=== PATIENT | male | born 1955 | race Caucasian/White ===

== ENCOUNTER → 2018-01-12 | Outpatient (CLI) | payer OTHER ==
[~2018-01-12] MED LIST: ASPI-435 PO; CITA10TA8 PO; CLON-460 PO; IBUP1TAB PO; LSN/2025 PO; MINO0.1C2 PO; NXM/40 PO; TAMS0.4C38 PO; ZOLP10TA PO
--- NOTE | 2018-01-12 15:42 | DIAGNOSTIC IMAGING REPORT ---
MRI OF THE LUMBAR SPINE WITHOUT IV CONTRAST CLINICAL HISTORY: Bilateral lower extremity weakness and leg pain. COMPARISON STUDY: Abdominal CT dated 01/06/2014. MRI of the lumbar spine dated 07/05/2012. TECHNIQUE: MRI of the lumbar spine is performed utilizing various T1 and T2-weighted sequences in the axial and sagittal planes. IV contrast was not administered for this examination. FINDINGS: Lumbar spine: Vertebral body height and alignment are maintained throughout the lumbar spine. Normal marrow signal intensity is preserved throughout the visualized bony structures. The transverse and spinous processes are intact as imaged. A hemangioma is again noted in the body of L1. There is no evidence of spondylolysis. Mild degenerative endplate edema is seen at L2-L3. Intervertebral discs: There is mild degenerative disc desiccation. Minimal loss of height is seen at L1-L2 and L2-L3. Spinal cord: The visualized spinal cord is normal in signal intensity. The conus medullaris terminates at the level of T12. The nerve roots of the cauda equina are normal in morphology. The appearance is unchanged from 2012. L1-L2: Unremarkable. L2-L3: Unremarkable. L3-L4: Unremarkable. L4-L5: Unremarkable. L5-S1: Unremarkable. Sacrum: The visualized sacrum is normal in morphology and signal intensity. Soft tissues: The paraspinous soft tissues are within normal limits. A focus of fatty change within the left psoas muscle is similar to prior studies. Left renal cysts are similar to previous. IMPRESSION: 1. There is no disc herniation, central canal stenosis, or neural foraminal stenosis seen throughout the lumbar spine. 2. No destructive bony process is identified. Dictated: 01/12/2018 3:32 PM Transcribed: 01/12/2018 3:41 PM [email or web address] Electronically signed by: Angel Valladares M.D. 01/12/2018 3:46 PM Dictated Date/Time: 01/12/2018 3:32 PM
== END | disposition home or self-care (01) ==
LOC: C.MRI 14:44
PROVIDERS: ATTEND Family Medicine
DX: R29.898 Other symptoms and signs involving the musculoskeletal system (principal); M79.606 Pain in leg, unspecified

== ENCOUNTER 2019-12-25 11:00 | Inpatient (IN) ==
[2019-12-25] MEDS ORDERED: METOPROLOL TARTRATE 1 MG/ML VIAL IV STA (11:02)
[2019-12-25] MEDS ORDERED: METOPROLOL TARTRATE 1 MG/ML VIAL IV ONE (11:02)
[2019-12-25] MEDS ORDERED: dilTIAZem HCL 125 MG in DEXTROSE 5% 100 ML IV SCH (11:15)
[2019-12-25] MEDS ORDERED: SODIUM CHLORIDE 0.9% 1000ML 1,000 ML IV SCH (11:15)
[2019-12-25 11:18] LABS: Basophils # (auto) 0.02 K/uL (0-0.2); Basophils % (auto) 0.4 %; Eosinophils # (auto) 0.18 K/uL (0-0.5); Eosinophils % (auto) 3.7 %; Hematocrit (blood only) 48.8 % (42-52); Hemoglobin 17.4 g/dL (14.0-18.0); Immature Granulocytes # (auto) 0.02 K/uL (0.00-0.02); Immature Granulocytes % (auto) 0.4 %; Lymphocytes # (auto) 1.62 K/uL (1.2-3.4); Lymphocytes % (auto) 32.9 %; Mean Corpuscular Hemoglobin 30.3 pg (25-34); Mean Corpuscular Hgb Conc 35.7 g/dL (32-36); Mean Platelet Volume 10.2 fL (7.4-10.4); Monocytes # (auto) 0.52 K/uL (0.11-0.59); Monocytes % (auto) 10.6 %; Neutrophils # (auto) 2.56 K/uL (1.4-6.5); Platelet Count 219 K/uL (130-400); RDW Coefficient of Variation 13.5 % (11.5-14.5); RDW Standard Deviation 41.5 fL (36.4-46.3); Red Blood Count 5.74 M/uL (4.7-6.1); White Blood Count 4.92 K/uL (4.8-10.8)
[2019-12-25 11:28] LABS: Partial Thromboplastin Ratio 1.1; Partial Thromboplastin Time 28.5 Seconds (21.0-31.0); Prothrombin Time 10.3 Seconds (9.0-12.0)
--- NOTE | 2019-12-25 11:30 | XRay Report ---
XR chest 1V portable HISTORY: Atypical Chest Pain COMPARISON: Chest 07/04/2014. FINDINGS: No pneumothorax. No pleural effusions. The lungs are clear. The heart remains mildly enlarg ed. Electronic device is overlying the left upper chest. IMPRESSION: Stable mild cardiomegaly. ACT 112: Negative or not required by law. Electronically signed by: Kirill Mcgraw M.D. 12/25/2019 11:28 AM
[2019-12-25 11:35] LABS: BUN Creatinine Ratio 20.1 (10-20); Blood Urea Nitrogen 23 mg/dl (7-18); Calcium 9.9 mg/dl (8.5-10.1); Carbon Dioxide 29 mmol/L (21-32); Chloride 103 mmol/L (98-107); Creatinine Clr Calc Pharmacy 76.1 ml/min; Est GFR (Non-African American) 66.4; Glucose 98 mg/dl (70-99); Lipase 88 U/L (73-393); Potassium 3.4 mmol/L (3.5-5.1); Sodium 139 mmol/L (136-145)
[2019-12-25 11:40] LABS: Troponin I < 0.015 ng/ml (0-0.045)
--- NOTE | 2019-12-25 11:44 | Emergency Department Note ---
ED Visit Note I saw this patient with Dr. Lundy. Please see his note for any medical decision making. . Resident Activity Tracking Resident Involvement: Resident Care Provided Care Provided: Adult ED
[2019-12-25] MEDS ORDERED: OPTIRAY 320 125ml IV PRN (12:17)
[2019-12-25] MEDS ORDERED: ONDANSETRON INJ 2 MG/ML 2 ML VIAL IV STA (12:35)
[2019-12-25] MEDS ORDERED: ONDANSETRON INJ 2 MG/ML 2 ML VIAL ONE (12:36)
--- NOTE | 2019-12-25 12:41 | CT Scan Report ---
CHEST CTA for PULMONARY ARTERIES CT DOSE: HISTORY: Atypical Chest Pain, eval for PE TECHNIQUE: Multiaxial CT images of the chest were performed following the intravenous administration of contrast to evaluate the pulmonary arteries. Maximal intensity projection images were also obtaine d. A dose lowering technique was utilized adhering to the principles of ALARA. COMPARISON STUDY: None. FINDINGS: Hepatic steatosis. The spleen is unremarkable. There is trace fluid posterior to the spleen . There is a partially visualized hypodense lesion within the left upper quadrant measuring 8 cm. Thi s likely represents a renal cyst. The adrenal glands are unremarkable. No pleural or pericardial effu sions. The heart is normal in size. No mediastinal or hilar lymphadenopathy. Normal esophagus. Mild c alcified plaque within the normal caliber thoracic aorta. Inadequate opacification of the aorta to ev aluate for a dissection. No filling defects within the pulmonary arteries to suggest pulmonary embolu s. The central airways are patent. No pneumothorax. Mild emphysema. A 3 mm subpleural nodule along th e left major fissure. This is of doubtful clinical significance. A 1.8 cm cyst/bulla within the right lung base. No focal lung consolidations to suggest pneumonia. Mild dependent changes seen within the lower lobes posteriorly. IMPRESSION: 1. No evidence for pulmonary embolus. 2. Mild emphysema. 3. Hepatic steatosis. 4. Trace fluid posterior to the spleen. However, the spleen appears unremarkable. ACT 112: Negative or not required by law. Electronically signed by: Kirill Mcgraw M.D. 12/25/2019 12:40 PM
--- NOTE | 2019-12-25 12:46 | CT Scan Report ---
HEAD CT NONCONTRAST CT DOSE: 1439.52 mGy.cm HISTORY: syncope hit head TECHNIQUE: Multiaxial CT images of the head were performed without the use of intravenous contrast. A utomated exposure control was utilized for this study. A dose lowering technique was utilized adheri ng to the principles of ALARA. Comparison: Brain MRI 07/05/2012. Findings: The paranasal sinuses and mastoid air cells are clear. The calvarium and skull base are int act. The ventricles and sulci are within normal limits. There is no mass, hematoma, midline shift, or acute infarct. Old left cerebellar infarct and an old lacunar infarct within the left basal ganglia. This remains unchanged. Impression: No significant change compared to the prior study. No acute intracranial abnormality. ACT 112: Negative or not required by law. Electronically signed by: Kirill Mcgraw M.D. 12/25/2019 12:44 PM
[2019-12-25] MEDS ORDERED: Heparin IV Low Dose WITH Bolus STA (13:07)
[2019-12-25] MEDS ORDERED: HEPARIN SOD (PORCINE) 1000 UNIT/ML 10 ML VIAL ONE (13:54)
--- NOTE | 2019-12-25 13:54 | History & Physical Report ---
Date of Service December 25, 2019 Assessment & Plan (1) Atrial fibrillation with RVR: -Admit to telemetry -Continue Cardizem drip -Continue heparin drip -EKG reviewed showing A. fib with RVR, heart rate remains in 150s while at bedside, patient does not feel symptomatic palpitations, reports that he is feeling somewhat better since being in the ER, but not back to baseline -Holter monitor in place, ordered by Dr. Rivera as outpatient, placed 5 days ago for 2-week timeframe -Cardiology consulted, Dr. Burton with [facility] since has already established care -Check TSH -Trend troponins, initial set was negative -Check 2D echo (2) Syncope: -Unwitnessed, CT of the head is negative for any acute intracranial abnormalities/hemorrhage -Check A1c, lipid panel with fasting labs -2D echo ordered -Cardiology consulted as above -Holding aspirin, took dose this morning (3) Hypertension: -Holding lisinopril/HCTZ and amlodipine while on Cardizem drip, continue clonidine -BP stable at 123/67 (4) Hyperlipidemia: -Check lipid panel with a.m. labs, does not appear to be on a statin, initiate if patient is able to tolerate (5) Stroke: History of such 10 years ago (6) Osteoarthritis: -Chronic (7) Fatty liver: -Noted (8) BPH (benign prostatic hyperplasia): -Continue Flomax (9) Hypokalemia: - K+ 3.4, will replace IV (10) DVT prophylaxis: -Heparin gtt, teds CODE: Full code Disposition: Patient from home, lives with , likely to remain in the hospital x1 to 2 days History of Present Illness Primary Care Provider: Mega Tyler, This is a 64 yo M with PMHx of HTN, HLD, stroke 10 years ago, BPH, GERD, insomnia, fatty liver, diverticulitis, who presents with syncopal episode in the setting of A. fib with RVR. The patient is present with his at bedside. He notes that he woke up this morning and felt somewhat nauseous, took 2 Advil along with breakfast because he did not quite feel well. He reports he was supposed to go to a today with his . She went by herself alone and he stayed at home on the couch. He reports getting up to walk down the hallway, felt like he was dreaming and remembers hitting his elbow and his head and woke up on the floor. Patient does not have any abrasions or lesions on either of those locations. He is not sore. He called his and she came home. The patient has actually been wearing a Holter monitor for the past 5 days, prescrib ed by Dr. Rivera with [facility] due to the same sensation of nausea/slight lightheadedness on and off over the past 5 years. He reports that he typically has been able to get over it himself however it has been taking longer for the feeling to resolve. Found to be in AFib with HR 153. Cardizem gtt. Starting on heparin gtt. K+ 3.4, will replace. Allergies Allergy/AdvReac Type Severity Reaction Status Date / Time No Known Allergies Allergy Verified 12/25/19 12:39 Home Medications Home Medications Medication Instructions Recorded Confirmed Type aspirin 325 mg PO QAM 11/26/18 12/25/19 History clonidine HCl 1 tab PO PM 11/26/18 12/25/19 History lisinopril-hydrochlorothiazide 1 tab PO QAM 11/26/18 12/25/19 History tamsulosin 0.4 mg PO QAM 11/26/18 12/25/19 History zolpidem [Ambien] 10 mg PO HS 11/26/18 12/25/19 History cholecalciferol (vitamin D3) 5,000 unit PO QPM 02/09/19 12/25/19 History [Vitamin D3] diphenhydramine-acetaminophen 2 tab PO HS 02/09/19 12/25/19 History [Tylenol PM Extra Strength] esomeprazole magnesium [Nexium] 20 mg PO QAM 02/09/19 12/25/19 History amlodipine 5 mg PO PM 12/25/19 12/25/19 History Past Med/Surg History Medical History BPH (benign prostatic hyperplasia) Diverticulitis Fatty liver GERD (gastroesophageal reflux disease) Hyperlipidemia Hypertension Insomnia Osteoarthritis Stroke 10 YEARS AGO (REASON FOR ASA) Surgical History History of bowel resection WITH COLOSTOMY AND REVERSAL History of cataract surgery 02/16/2019 [facility] [place] History of colonoscopy History of colostomy reversal History of esophagogastroduodenoscopy (EGD) History of herniorrhaphy Hx of LASIK Family History Other No pertinent family history Social History Preferred Language: Albanian Communication Ability: Effective [employer] Required: No Beliefs That Will Affect Care: None Current Living Situation: Spouse Other Information That Helps Us Care for You: No Feels Safe at Home: Yes Safety Concerns: Feels Safe At This Time Smoking Status: Former smoker Cigarettes Per Day: 10 YEARS AGO ; Smoking End Date: 2008 ; Second Hand Exposure: No ; Hx Alcohol Use: Yes Alcohol type: beer and hard liquor Hx Substance Use: No Review of Systems Review of Systems: Constitutional: No fever, sweats or chills Eyes: No diplopia, no worsening or blurred vision ENT: normal hearing, no trouble swallowing Respiratory: No cough, sputum, dyspnea at rest or on exertion Cardiovascular: As per HPI. No chest pain, tightness or palpitations Abdomen: + nausea, No pain, vomiting, diarrhea or constipation Musculoskeletal: No joint pain, calf pain, swelling Neurologic: No weakness, numbness/tingling, or balance problems Psychiatric: No anxiety or depression Skin: No rash or itch Physical Exam Physical Exam: General: awake, alert, no apparent distress, + obese Head: Normocephalic, atraumatic ENT: PERRL, EOMI, no pharyngeal exudate, mucous membranes moist Chest: Clear to auscultation, on room air, no adventitious breath sounds Cardiac: Irregularly irregular, tachy, HR 150s at bedside, no murmur, no JVD, normal peripheral pulses, good capillary refill Abdominal: NABS x 4 quadrants, soft, nondistended, nontender to palpation, no rebound, guarding or tenderness Extremities: Normal inspection, no peripheral edema or erythema, calfs nontender to palpation Psych: Normal mood and affect Neuro: AAO x 3, strength intact bilaterally and related 5/5, no motor deficits, speech is clear, no peripheral sensory deficits Results & Data Vital Signs (Past 12 Hours) Vital Signs Temp Pulse Resp BP Pulse Ox 12/25/19 13:45 153 H 21 123/67 97 12/25/19 13:40 146 H 24 97 12/25/19 13:31 130 H 21 111/35 L 95 12/25/19 13:30 126 H 18 95 12/25/19 13:20 120 H 15 96 12/25/19 13:16 132 H 15 115/75 97 12/25/19 13:10 135 H 21 91 12/25/19 13:06 108 H 22 145/96 H 94 12/25/19 13:01 121 H 19 96 12/25/19 13:00 128 H 20 121/85 95 12/25/19 12:50 128 H 18 98 12/25/19 12:45 132 H 18 112/83 99 12/25/19 12:40 117 H 20 99 12/25/19 12:32 122 H 25 H 135/92 100 12/25/19 12:31 110 H 18 12/25/19 12:04 146 H 22 124/106 H 96 12/25/19 12:01 132 H 23 68/53 L 96 12/25/19 12:00 140 H 19 100 12/25/19 11:50 122 H 17 97 12/25/19 11:45 115 H 16 134/75 97 12/25/19 11:40 125 H 23 72 L 12/25/19 11:32 110 H 15 93 12/25/19 11:31 117 H 19 104/85 95 12/25/19 11:30 93 H 16 89 L 12/25/19 11:25 121 H 21 147/83 H 96 12/25/19 11:20 118 H 22 98 12/25/19 11:11 126 H 25 H 93 12/25/19 11:09 124 H 13 152/128 H 100 12/25/19 11:08 135 H 132/94 12/25/19 11:00 36.8 C 135 H 24 132/64 100 Diagnostic Findings CHEST CTA for PULMONARY ARTERIES CT DOSE: HISTORY: Atypical Chest Pain, eval for PE TECHNIQUE: Multiaxial CT images of the chest were performed following the intravenous administration of contrast to evaluate the pulmonary arteries. Maximal intensity projection images were also obtained. A dose lowering technique was utilized adhering to the principles of ALARA. COMPARISON STUDY: None. FINDINGS: Hepatic steatosis. The spleen is unremarkable. There is trace fluid posterior to the spleen. There is a partially visualized hypodense lesion within the left upper quadrant measuring 8 cm. This likely represents a renal cyst. The adrenal glands are unremarkable. No pleural or pericardial effusions. The heart is normal in size. No mediastinal or hilar lymphadenopathy. Normal esophagus. Mild calcified plaque within the normal caliber thoracic aorta. Inadequate opacification of the aorta to evaluate for a dissection. No filling defects within the pulmonary arteries to suggest pulmonary embolus. The central airways are patent. No pneumothorax. Mild emphysema. A 3 mm subpleural nodule along the left major fissure. This is of doubtful clinical significance. A 1.8 cm cyst/bulla within the right lung base. No focal lung consolidations to suggest pneumonia. Mild dependent changes seen within the lower lobes posteriorly. IMPRESSION: 1. No evidence for pulmonary embolus. 2. Mild emphysema. 3. Hepatic steatosis. 4. Trace fluid posterior to the spleen. However, the spleen appears unremarkable. XR chest 1V portable HISTORY: Atypical Chest Pain COMPARISON: Chest 07/04/2014. FINDINGS: No pneumothorax. No pleural effusions. The lungs are clear. The heart remains mildly enlarged. Electronic device is overlying the left upper chest. IMPRESSION: Stable mild cardiomegaly. ACT 112: Negative or not required by law. Electronically signed by: Kirill Mcgraw M.D. 12/25/2019 11:[address] DOSE: 1439.52 mGy.cm HISTORY: syncope hit head TECHNIQUE: Multiaxial CT images of the head were performed without the use of intravenous contrast. Automated exposure control was utilized for this study. A dose lowering technique was utilized adhering to the principles of ALARA. Comparison: Brain MRI 07/05/2012. Findings: The paranasal sinuses and mastoid air cells are clear. The calvarium and skull base are intact. The ventricles and sulci are within normal limits. There is no mass, hematoma, midline shift, or acute infarct. Old left cerebellar infarct and an old lacunar infarct within the left basal ganglia. This remains unchanged. Impression: No significant change compared to the prior study. No acute intracranial abnormality. ACT 112: Negative or not required by law. Electronically signed by: Kirill Mcgraw M.D. 12/25/2019 12:44 PM Code Status & VTE Plan Code Status Full-discussed with the patient and at bedside Supervising Physician Co-Signing Physician Notes Patient seen and examined, chart reviewed, case discussed with MACY Holley and I agree with her assessment and plan as above. Briefly, patient is a 64yo C male presenting in AF with RVR, syncopal event preceding arrival. Patient has been having intermitted palpitations x 5 years. He has a Zio-patch in place. Presently feels well. Denies CP, SOB, dizziness at present On physical exam he is afebrile, tachycardic, irregularly irregular Skin - no rash HEENT - NC/AT, PERRL, EOMI, MMM Heart - +S1/S2, irregularly irregular, tachycardic, no m/r/g Lungs - CTA Abd - +BS, soft, NT/ND Ext - No edema Labs and images reviewed Assessment/Plan -Observation to telemetry -Cardizem gtt -Heparin gtt -Trend troponins -Check 2D echocardiogram -Appreciate cardiology assistance -Remainder of plan as above PG Care Time/CCT Total # of Minutes Spent Total Time Spent with Patient: Total time spent is greater than 50% in coordination of care (as documented) at patient's floor/unit and/or counseling patient: Coding Level of Care Code 48119 Initial Inpt Care Lvl 3 Diagnoses Atrial fibrillation with RVR I48.91 Syncope R55 Syncope type: unspecified Hypertension I10 Hyperlipidemia E78.5 Stroke I63.9 Osteoarthritis M19.90 Fatty liver K76.0 BPH (benign prostatic hyperplasia) N40.0 Hypokalemia E87.6 DVT prophylaxis Z29.9 (1) Syncope Syncope type: unspecified Qualified Code(s): R55 - Syncope and collapse
--- NOTE | 2019-12-25 14:29 | Emergency Department Note ---
Entered by Coleen Desai acting as a scribe for Jim Lundy History of Present Illness General Chief complaint: Cardiac Assessment Stated complaint: afib Time Seen by Provider: 12/25/19 11:02 Source: patient History of Present Illness Onset (ago): minute(s) (prior to arrival) Location: head (general) Pain Consistency: + other (episode) Quality: + other (syncope) Associated symptoms: + shortness of breath and + other (heart palpitations, fall, head injury) The patient is a 64 year old male who presents to the Emergency Room with complaints a syncopal episode that occurred just prior to arrival. The patient reports heart palpitations and shortness of breath. He states he thinks he hit his head when he passed out and fell. He notes he hit his elbow. The patient reports multiple recent syncopal episode. He reports taking aspirin. The patient denies illicit drug use. Home Medications Home Medications Medication Instructions Recorded Confirmed Type aspirin 325 mg PO QAM 11/26/18 12/25/19 History clonidine HCl 1 tab PO PM 11/26/18 12/25/19 History lisinopril-hydrochlorothiazide 1 tab PO QAM 11/26/18 12/25/19 History tamsulosin 0.4 mg PO QAM 11/26/18 12/25/19 History zolpidem [Ambien] 10 mg PO HS 11/26/18 12/25/19 History cholecalciferol (vitamin D3) 5,000 unit PO QPM 02/09/19 12/25/19 History [Vitamin D3] diphenhydramine-acetaminophen 2 tab PO HS 02/09/19 12/25/19 History [Tylenol PM Extra Strength] esomeprazole magnesium [Nexium] 20 mg PO QAM 02/09/19 12/25/19 History amlodipine 5 mg PO PM 12/25/19 12/25/19 History Allergies Allergy/AdvReac Type Severity Reaction Status Date / Time No Known Allergies Allergy Verified 12/25/19 12:39 Past Med/Surg History Medical History BPH (benign prostatic hyperplasia) Diverticulitis Fatty liver GERD (gastroesophageal reflux disease) Hyperlipidemia Hypertension Insomnia Osteoarthritis Stroke 10 YEARS AGO (REASON FOR ASA) Surgical History History of bowel resection WITH COLOSTOMY AND REVERSAL History of cataract surgery 02/16/2019 [facility] [place] History of colonoscopy History of colostomy reversal History of esophagogastroduodenoscopy (EGD) History of herniorrhaphy Hx of LASIK Family History Other No pertinent family history Social History Preferred Language: [place] Communication Ability: Effective [employer] Required: No Beliefs That Will Affect Care: None Current Living Situation: Spouse Feels Safe at Home: Yes Smoking Status: Never smoker Cigarettes Per Day: 10 YEARS AGO ; Second Hand Exposure: No ; Hx Alcohol Use: Yes Alcohol type: beer and hard liquor Hx Substance Use: No Review of Systems See HPI for pertinent positives & negatives. and A total of 10 systems reviewed and were otherwise negative Physical Exam Vital Signs Vital Signs - 24 hr 12/25/19 11:00 12/25/19 11:08 12/25/19 11:09 Temperature 36.8 C Temperature Source Oral Pulse Rate 135 H 135 H 124 H Pulse Rate from SpO2 Sensor 120 H Pulse Rhythm Irregular Respiratory Rate 24 13 Respiratory Effort / Characteristics Non-Labored Spontaneous Respiratory Depth Normal Blood Pressure 132/64 132/94 152/128 H Blood Pressure Mean 86 129 Blood Pressure Position Lying Pulse Oximetry 100 100 Oxygen Delivery Method Room Air Sepsis Recent Fever Within 48 Hours No Sepsis Action Taken by Nursing No Action Required 12/25/19 11:11 12/25/19 11:20 12/25/19 11:25 Temperature Temperature Source Pulse Rate 126 H 118 H 121 H Pulse Rate from SpO2 Sensor 99 H 89 109 H Pulse Rhythm Respiratory Rate 25 H 22 21 Respiratory Effort / Characteristics Respiratory Depth Blood Pressure 147/83 H Blood Pressure Mean 103 Blood Pressure Position Pulse Oximetry 93 98 96 Oxygen Delivery Method Sepsis Recent Fever Within 48 Hours Sepsis Action Taken by Nursing 12/25/19 11:30 12/25/19 11:31 12/25/19 11:32 Temperature Temperature Source Pulse Rate 93 H 117 H 110 H Pulse Rate from SpO2 Sensor 137 H 134 H 117 H Pulse Rhythm Respiratory Rate 16 19 15 Respiratory Effort / Characteristics Respiratory Depth Blood Pressure 104/85 Blood Pressure Mean 88 Blood Pressure Position Pulse Oximetry 89 L 95 93 Oxygen Delivery Method Sepsis Recent Fever Within 48 Hours Sepsis Action Taken by Nursing 12/25/19 11:40 12/25/19 11:45 12/25/19 11:50 Temperature Temperature Source Pulse Rate 125 H 115 H 122 H Pulse Rate from SpO2 Sensor 108 H 87 81 Pulse Rhythm Respiratory Rate 23 16 17 Respiratory Effort / Characteristics Respiratory Depth Blood Pressure 134/75 Blood Pressure Mean 117 Blood Pressure Position Pulse Oximetry 72 L 97 97 Oxygen Delivery Method Sepsis Recent Fever Within 48 Hours Sepsis Action Taken by Nursing 12/25/19 12:00 12/25/19 12:01 12/25/19 12:04 Temperature Temperature Source Pulse Rate 140 H 132 H 146 H Pulse Rate from SpO2 Sensor 85 84 94 H Pulse Rhythm Respiratory Rate 19 23 22 Respiratory Effort / Characteristics Respiratory Depth Blood Pressure 68/53 L 124/106 H Blood Pressure Mean 57 113 Blood Pressure Position Pulse Oximetry 100 96 96 Oxygen Delivery Method Sepsis Recent Fever Within 48 Hours Sepsis Action Taken by Nursing 12/25/19 12:31 12/25/19 12:32 12/25/19 12:40 Temperature Temperature Source Pulse Rate 110 H 122 H 117 H Pulse Rate from SpO2 Sensor 94 H 97 H Pulse Rhythm Respiratory Rate 18 25 H 20 Respiratory Effort / Characteristics Respiratory Depth Blood Pressure 135/92 Blood Pressure Mean 104 Blood Pressure Position Pulse Oximetry 100 99 Oxygen Delivery Method Sepsis Recent Fever Within 48 Hours Sepsis Action Taken by Nursing 12/25/19 12:45 12/25/19 12:50 12/25/19 13:00 Temperature Temperature Source Pulse Rate 132 H 128 H 128 H Pulse Rate from SpO2 Sensor 114 H 103 H 120 H Pulse Rhythm Respiratory Rate 18 18 20 Respiratory Effort / Characteristics Respiratory Depth Blood Pressure 112/83 121/85 Blood Pressure Mean 105 106 Blood Pressure Position Pulse Oximetry 99 98 95 Oxygen Delivery Method Sepsis Recent Fever Within 48 Hours Sepsis Action Taken by Nursing 12/25/19 13:01 12/25/19 13:06 12/25/19 13:10 Temperature Temperature Source Pulse Rate 121 H 108 H 135 H Pulse Rate from SpO2 Sensor 103 H 91 H 122 H Pulse Rhythm Respiratory Rate 19 22 21 Respiratory Effort / Characteristics Respiratory Depth Blood Pressure 145/96 H Blood Pressure Mean 102 Blood Pressure Position Pulse Oximetry 96 94 91 Oxygen Delivery Method Sepsis Recent Fever Within 48 Hours Sepsis Action Taken by Nursing 12/25/19 13:16 12/25/19 13:20 12/25/19 13:30 Temperature Temperature Source Pulse Rate 132 H 120 H 126 H Pulse Rate from SpO2 Sensor 100 H 75 119 H Pulse Rhythm Respiratory Rate 15 15 18 Respiratory Effort / Characteristics Respiratory Depth Blood Pressure 115/75 Blood Pressure Mean 81 Blood Pressure Position Pulse Oximetry 97 96 95 Oxygen Delivery Method Sepsis Recent Fever Within 48 Hours Sepsis Action Taken by Nursing 12/25/19 13:31 12/25/19 13:40 12/25/19 13:45 Temperature Temperature Source Pulse Rate 130 H 146 H 153 H Pulse Rate from SpO2 Sensor 120 H 100 H 74 Pulse Rhythm Respiratory Rate 21 24 21 Respiratory Effort / Characteristics Respiratory Depth Blood Pressure 111/35 L 123/67 Blood Pressure Mean 41 79 Blood Pressure Position Pulse Oximetry 95 97 97 Oxygen Delivery Method Sepsis Recent Fever Within 48 Hours Sepsis Action Taken by Nursing GENERAL: He is oriented to person, place, and time. He appears well-developed and well-nourished. He does not appear distressed. HENT: Exam performed. - Head: Normocephalic and atraumatic. - Right Ear: External ear normal. No mastoid tenderness. - Left Ear: External ear normal. No mastoid tenderness. - Mouth/Throat: The oropharynx is clear and moist. No trismus in the jaw. No dental abscesses or uvula swelling. No oropharyngeal exudate or tonsillar abscesses. EYES: Conjunctivae and EOM are normal. Pupils are equal, round, and reactive to light. Right eye exhibits no discharge. Left eye exhibits no discharge. No scleral icterus. NECK: Normal range of motion. Neck supple. No JVD present. No spinous process tenderness present. No carotid bruit present. No rigidity. No tracheal deviation and normal range of motion present. No Brudzinski's sign and no Kernig's sign noted. CV: Tachycardic rate, irregular rhythm, normal heart sounds and intact distal pulses. There is no peripheral edema. Palpable radial pulses bue. PULM/CHEST: Effort normal and breath sounds normal. No respiratory distress. No stridor. He has no wheezes. He has no rales. - Chest Wall: He exhibits no tenderness. ABD: The abdomen is soft. Bowel sounds are normal. He has no distension. No mass is present. There is no tenderness. There is no rebound, no guarding, no Anderson's sign and no tenderness at McBurney's point. Rovsig negative. MUSC/SKEL: Normal range of motion. There is no peripheral edema, tenderness or deformity. LYMPH: No cervical adenopathy. NEURO: He is alert and oriented to person, place, and time. He has normal strength. No cranial nerve deficit or sensory deficit. Coordination and gait normal. GCS eye subscore is 4. GCS verbal subscore is 5. GCS motor subscore is 6. Cerebellar tests wnl. SKIN: Skin is warm and dry. He is not diaphoretic. PSYCH: He has a normal mood and affect. Behavior is normal. Judgment and thought content normal. Course Course 1040: I received a call from EMS about the patient who was in a-fib RVR. The patient has a history of multiple syncopal episodes. The patient's EKG showed a- fib, rate of 164. QRS and QTC intervals were within normal limits. There was no ST elevation or ST depression. 1050: I spoke with EMS and told them to give the patient a Cardizem bolus 10mg. The patient's EKG showed a-fib, rate of 177. QRS and QTC intervals were within normal limits. There was no ST elevation or ST depression. 1100: Past medical records reviewed. The patient was evaluated in room C03. A complete history and physical exam was performed. The patient is still in a-fib, RVR. The patient's EKG showed a-fib, rate of 149. QRS and QTC intervals were within normal limits. There was no ST elevation or ST depression. PVCs are present. 1112: There is no Cardizem bolus available in the ER. The patient was given Metoprolol 5mg. He will be started on a Cardizem drip. The patient denies cocaine use. Status post metoprolol, the patient's ventricular rate has improved. The patient's EKG showed a-fib, rate of 115. QRS and QTC intervals were within normal limits. There was no ST elevation or ST depression. PVCs are present. 1200: The patient's heart rate is elevated to 130. His Cardizem drip was increased to 7.5mg. 0100: The patient has remained tachycardic. His Cardizem drip was increased to 10mg. The patient's blood pressure was stable. Labs and imaging were within normal limits. The patient's FRANCESCA score was 3 due to hypertension and a history of stroke. The patient was started on heparin for a-fib and admitted to the [facility] hospitalist service. 0111: I spoke with Dr. Fish - [facility] Hospitalist who agrees to accept the patient for further evaluation. Administered Medications Diltiazem HCl 125 mg/ Dextrose 125 mls @ 10 mls/hr IV .[id number] JEWELL; Protocol Stop: 01/24/20 11:14 Last Titration: 12/25/19 13:05 Dose: 10 mg/hr, 10 mls/hr Documented by: [id number] Cosigned by: [id number] Titration: 12/25/19 12:01 Dose: 7.5 mg/hr, 7.5 mls/hr Documented by: [id number] Cosigned by: [id number] Admin: 12/25/19 11:20 Dose: 5 mg/hr, 5 mls/hr Documented by: [id number] Cosigned by: [id number] Ioversol (Optiray 320 125ml) 118 ml IV ONCE PRN PRN Reason: Interaction Checking Stop: 12/29/19 12:16 Last Admin: 12/25/19 12:17 Dose: 118 ml Documented by: [id number] Discontinued Medications Sodium Chloride (Nss 1000ml) 1,000 mls @ 999 mls/hr IV .[id number] JEWELL Stop: 12/25/19 12:15 Last Infusion: 12/25/19 12:14 Dose: 0 mls/hr Documented by: [id number] Admin: 12/25/19 11:08 Dose: 999 mls/hr Documented by: [id number] Metoprolol Tartrate (Lopressor) Confirm Administered Dose 5 mg IV .STK-MED ONE Stop: 12/25/19 11:03 Last Admin: 12/25/19 11:08 Dose: Not Given Documented by: [id number] Metoprolol Tartrate (Lopressor) 5 mg IV NOW STA Stop: 12/25/19 11:03 Last Admin: 12/25/19 11:08 Dose: 5 mg Documented by: [id number] Ondansetron HCl (Zofran) 4 mg IV NOW STA Stop: 12/25/19 12:36 Last Admin: 12/25/19 12:52 Dose: 4 mg Documented by: [id number] Ondansetron HCl (Zofran) Confirm Administered Dose 4 mg .ROUTE .STK-MED ONE Stop: 12/25/19 12:37 Last Admin: 12/25/19 12:52 Dose: Not Given Documented by: [id number] Critical Care Time Critical Care Time: Yes Total Critical Care Time: 65 I have personally spent 65 minutes of critical care time in the direct management of this patient. This includes bedside care, interpretation of diagnostic studies, and testing, discussion with consultants, patient, and family members, and other required patient management activities. This 65 minutes is in excess of all separately billable procedures. Medical Decision Making Medical Records Attestation: I reviewed the patient's medical records. Home Medications Current Medication List: was personally reviewed by me Laboratory Data Attestation: I reviewed the patient's lab results. Result diagrams: 12/25/19 10:52 12/25/19 10:52 Lab Results 12/25/19 12/25/19 12/25/19 Range/Units 10:52 10:52 10:52 WBC 4.92 (4.8-10.8) K/uL RBC 5.74 (4.7-6.1) M/uL Hgb 17.4 (14.0-18.0) g/dL Hct 48.8 (42-52) % MCV 85.0 (80-100) fL MCH 30.3 (25-34) pg MCHC 35.7 (32-36) g/dL RDW Std Deviation 41.5 (36.4-46.3) fL RDW Coeff of Malissa 13.5 (11.5-14.5) % Plt Count 219 (130-400) K/uL MPV 10.2 (7.4-10.4) fL Immature Gran % (Auto) 0.4 % Neut % (Auto) 52.0 % Lymph % (Auto) 32.9 % Leon % (Auto) 10.6 % Eos % (Auto) 3.7 % Baso % (Auto) 0.4 % Immature Gran # (Auto) 0.02 (0.00-0.02) K/uL Neut # (Auto) 2.56 (1.4-6.5) K/uL Lymph # (Auto) 1.62 (1.2-3.4) K/uL Leon # (Auto) 0.52 (0.11-0.59) K/uL Eos # (Auto) 0.18 (0-0.5) K/uL Baso # (Auto) 0.02 (0-0.2) K/uL PT 10.3 (9.0-12.0) Seconds INR 1.0 (0.9-1.1) APTT 28.5 (21.0-31.0) Seconds PTT Ratio 1.1 Sodium 139 (136-145) mmol/L Potassium 3.4 L (3.5-5.1) mmol/L Chloride 103 (98-107) mmol/L Carbon Dioxide 29 (21-32) mmol/L Anion Gap 7.0 (3-11) BUN 23 H (7-18) mg/dl Creatinine 1.15 (0.6-1.4) mg/dl Est Cr Clr Drug Dosing 76.1 ml/min Est GFR ( Amer) 77.0 Est GFR (Non-Af Amer) 66.4 BUN/Creatinine Ratio 20.1 H (10-20) Glucose 98 (70-99) mg/dl Calcium 9.9 (8.5-10.1) mg/dl Magnesium 2.0 (1.8-2.4) mg/dl Troponin I < 0.015 (0-0.045) ng/ml Lipase 88 (73-393) U/L 12/25/19 Range/Units 10:52 WBC (4.8-10.8) K/uL RBC (4.7-6.1) M/uL Hgb (14.0-18.0) g/dL Hct (42-52) % MCV (80-100) fL MCH (25-34) pg MCHC (32-36) g/dL RDW Std Deviation (36.4-46.3) fL RDW Coeff of Malissa (11.5-14.5) % Plt Count (130-400) K/uL MPV (7.4-10.4) fL Immature Gran % (Auto) % Neut % (Auto) % Lymph % (Auto) % Leon % (Auto) % Eos % (Auto) % Baso % (Auto) % Immature Gran # (Auto) (0.00-0.02) K/uL Neut # (Auto) (1.4-6.5) K/uL Lymph # (Auto) (1.2-3.4) K/uL Leon # (Auto) (0.11-0.59) K/uL Eos # (Auto) (0-0.5) K/uL Baso # (Auto) (0-0.2) K/uL PT (9.0-12.0) Seconds INR (0.9-1.1) APTT (21.0-31.0) Seconds PTT Ratio Sodium (136-145) mmol/L Potassium (3.5-5.1) mmol/L Chloride (98-107) mmol/L Carbon Dioxide (21-32) mmol/L Anion Gap (3-11) BUN (7-18) mg/dl Creatinine (0.6-1.4) mg/dl Est Cr Clr Drug Dosing ml/min Est GFR ( Amer) Est GFR (Non-Af Amer) BUN/Creatinine Ratio (10-20) Glucose (70-99) mg/dl Calcium (8.5-10.1) mg/dl Magnesium Cancelled (1.8-2.4) mg/dl Troponin I (0-0.045) ng/ml Lipase (73-393) U/L Imaging Data Radiologist's Impression: Radiology results as stated below per my review and the radiologist's interpretation: CHEST CTA for PULMONARY ARTERIES CT DOSE: HISTORY: Atypical Chest Pain, eval for PE TECHNIQUE: Multiaxial CT images of the chest were performed following the intravenous administration of contrast to evaluate the pulmonary arteries. Maximal intensity projection images were also obtained. A dose lowering technique was utilized adhering to the principles of ALARA. COMPARISON STUDY: None. FINDINGS: Hepatic steatosis. The spleen is unremarkable. There is trace fluid posterior to the spleen. There is a partially visualized hypodense lesion within the left upper quadrant measuring 8 cm. This likely represents a renal cyst. The adrenal glands are unremarkable. No pleural or pericardial effusions. The heart is normal in size. No mediastinal or hilar lymphadenopathy. Normal esophagus. Mild calcified plaque within the normal caliber thoracic aorta. Inadequate opacification of the aorta to evaluate for a dissection. No filling defects within the pulmonary arteries to suggest pulmonary embolus. The central airways are patent. No pneumothorax. Mild emphysema. A 3 mm subpleural nodule along the left major fissure. This is of doubtful clinical significance. A 1.8 cm cyst/bulla within the right lung base. No focal lung consolidations to suggest pneumonia. Mild dependent changes seen within the lower lobes posteriorly. IMPRESSION: 1. No evidence for pulmonary embolus. 2. Mild emphysema. 3. Hepatic steatosis. 4. Trace fluid posterior to the spleen. However, the spleen appears unremarkable. ACT 112: Negative or not required by law. Electronically signed by: Kirill Mcgraw M.D. 12/25/2019 12:40 PM XR chest 1V portable HISTORY: Atypical Chest Pain COMPARISON: Chest 07/04/2014. FINDINGS: No pneumothorax. No pleural effusions. The lungs are clear. The heart remains mildly enlarged. Electronic device is overlying the left upper chest. IMPRESSION: Stable mild cardiomegaly. ACT 112: Negative or not required by law. Electronically signed by: Kirill Mcgraw M.D. 12/25/2019 11:[address]AST CT DOSE: 1439.52 mGy.cm HISTORY: syncope hit head TECHNIQUE: Multiaxial CT images of the head were performed without the use of intravenous contrast. Automated exposure control was utilized for this study. A dose lowering technique was utilized adhering to the principles of ALARA. Comparison: Brain MRI 07/05/2012. Findings: The paranasal sinuses and mastoid air cells are clear. The calvarium and skull base are intact. The ventricles and sulci are within normal limits. There is no mass, hematoma, midline shift, or acute infarct. Old left cerebellar infarct and an old lacunar infarct within the left basal ganglia. This remains unchanged. Impression: No significant change compared to the prior study. No acute intracranial abnormality. ACT 112: Negative or not required by law. Electronically signed by: Kirill Mcgraw M.D. 12/25/2019 12:44 PM ECG Data Attestation: I personally reviewed and interpreted this ECG as follows: Indication: + syncope Rate (beats per minute): 149 Rhythm: + atrial fibrillation ECG Intervals/blocks: + Normal QRS and + Normal QT-c ECG ST segments: no ST depression and no ST elevation ECG Findings: + PVCs Additional Comments: REPEAT EKG: a-fib, rate of 115, normal QRS and QTC intervals, no ST elevation or ST depression, PVCs present Blood Pressure Blood Pressure Findings: Elevated blood pressure Blood Pressure Disposition: further management by hospitalist ADRIAN Narrative 1040: I received a call from EMS about the patient who was in a-fib RVR. The patient has a history of multiple syncopal episodes. The patient's EKG showed a- fib, rate of 164. QRS and QTC intervals were within normal limits. There was no ST elevation or ST depression. 1050: I spoke with EMS and told them to give the patient a Cardizem bolus 10mg. The patient's EKG showed a-fib, rate of 177. QRS and QTC intervals were within normal limits. There was no ST elevation or ST depression. 1100: Past medical records reviewed. The patient was evaluated in room C03. A complete history and physical exam was performed. The patient is still in a-fib, RVR. The patient's EKG showed a-fib, rate of 149. QRS and QTC intervals were within normal limits. There was no ST elevation or ST depression. PVCs are present. 1112: There is no Cardizem bolus available in the ER. The patient was given Metoprolol 5mg. He will be started on a Cardizem drip. The patient denies cocaine use. Status post metoprolol, the patient's ventricular rate has improved. The patient's EKG showed a-fib, rate of 115. QRS and QTC intervals were within normal limits. There was no ST elevation or ST depression. PVCs are present. 1200: The patient's heart rate is elevated to 130. His Cardizem drip was increased to 7.5mg. 0100: The patient has remained tachycardic. His Cardizem drip was increased to 10mg. The patient's blood pressure was stable. Labs and imaging were within normal limits. The patient's FRANCESCA score was 3 due to hypertension and a history of stroke. The patient was started on heparin for a-fib and admitted to the [facility] hospitalist service. 0111: I spoke with Dr. Fish - [facility] Hospitalist who agrees to accept the patient for further evaluation. Impression & Plan Atrial fibrillation with RVR, Syncope Discharge Plan Visit Data Chief Complaint: Cardiac Assessment Stated Complaint: afib ED Provider: Jim Lundy ED Midlevel Provider: Nimo Johnson Discharge Problem: Atrial fibrillation with RVR, Syncope Patient Disposition: Being Evaluated by Hospitalist Forms Stand Alone Forms: My [facility] Prescriptions Prescriptions: No Action aspirin 325 mg Tablet 325 mg PO QAM RF: 0 clonidine HCl 0.3 mg Tablet 1 tab PO PM RF: 0 tamsulosin 0.4 mg Capsule 0.4 mg PO QAM RF: 0 lisinopril-hydrochlorothiazide 20-25 mg Tablet 1 tab PO QAM RF: 0 zolpidem [Ambien] 10 mg Tablet 10 mg PO HS RF: 0 amlodipine 5 mg tablet 5 mg PO PM RF: 0 diphenhydramine-acetaminophen [Tylenol PM Extra Strength] 25-500 mg Tablet 2 tab PO HS RF: 0 esomeprazole magnesium [Nexium] 20 mg Capsule,Delayed Release(Dr/Ec) 20 mg PO QAM RF: 0 cholecalciferol (vitamin D3) [Vitamin D3] 5,000 unit Tablet 5,000 unit PO QPM RF: 0 Referrals Referrals: Mega Tyler DO [Primary Care Provider] - Discharge Problem: Syncope Qualifiers: Syncope type: unspecified Qualified Code(s): R55 - Syncope and collapse The scribe's documentation has been prepared under my direction and personally reviewed by me in its entirety. I confirm that the note above accurately reflects all work, treatment, procedures, and medical decision making performed by me.
[2019-12-25] MEDS: HEPARIN SODIUM/DEXTROSE 25,000 UNITS/500 ML BAG IV SCH (14:55)
[2019-12-25] MEDS ORDERED: ACETAMINOPHEN 325 MG TAB PO PRN (16:01)
[2019-12-25] MEDS ORDERED: ONDANSETRON INJ 2 MG/ML 2 ML VIAL IV PRN (16:01)
--- NOTE | 2019-12-25 16:20 | Cardiology Consultation ---
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 We can remove his ZIO patch early and have it analyzed especially around the time of his syncope. He could be experiencing vasovagal syncope which was then followed by the atrial fibrillation due to the stress and adrenaline surge from the event. Or he could be having atrial fibrillation resulting in syncope. I will review his echocardiogram when it is complete. He will have cardiac markers drawn. Further evaluation and treatment following the above. History of Present Illness Attending Physician: Maribell Fish, History of Present Illness This is a 64-year-old male patient who was recently evaluated by Dr. Rivera through our clinic. He was referred by the GI service due to symptoms of nausea and abdominal discomfort during exercise. The patient had a ZIO monitor placed and was scheduled for a stress test. He still has the ZIO patch on today. He had a syncopal episode and was admitted to the hospital with atrial fibrillation and RVR which is since spontaneously converted to normal sinus rhythm. He has no prior history of ischemic heart disease. For the past several years he has had nausea with associated dizziness and lightheadedness. It is gotten worse recently and he has been experiencing severe symptoms which led up to his syncope today. Past medical history: 1. Longstanding hypertension 2. 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 Hyperlipidemia with poor tolerance of therapies per patient Allergies Allergy/AdvReac Type Severity Reaction Status Date / Time No Known Allergies Allergy Verified 12/25/19 12:39 Home Medications Home Medications Medication Instructions Recorded Confirmed Type aspirin 325 mg PO QAM 11/26/18 12/25/19 History clonidine HCl 1 tab PO PM 11/26/18 12/25/19 History lisinopril-hydrochlorothiazide 1 tab PO QAM 11/26/18 12/25/19 History tamsulosin 0.4 mg PO QAM 11/26/18 12/25/19 History zolpidem [Ambien] 10 mg PO HS 11/26/18 12/25/19 History cholecalciferol (vitamin D3) 5,000 unit PO QPM 02/09/19 12/25/19 History [Vitamin D3] diphenhydramine-acetaminophen 2 tab PO HS 02/09/19 12/25/19 History [Tylenol PM Extra Strength] esomeprazole magnesium [Nexium] 20 mg PO QAM 02/09/19 12/25/19 History amlodipine 5 mg PO PM 12/25/19 12/25/19 History Patient History Medical History BPH (benign prostatic hyperplasia) Diverticulitis Fatty liver GERD (gastroesophageal reflux disease) Hyperlipidemia Hypertension Insomnia Osteoarthritis Stroke 10 YEARS AGO (REASON FOR ASA) Surgical History History of bowel resection WITH COLOSTOMY AND REVERSAL History of cataract surgery 02/16/2019 [facility] History of colonoscopy History of colostomy reversal History of esophagogastroduodenoscopy (EGD) History of herniorrhaphy Hx of LASIK Family History Other No pertinent family history Social History Preferred Language: Danish Communication Ability: Effective Iso Coordinator Required: No Beliefs That Will Affect Care: None marital status: Current Living Situation: Spouse Other Information That Helps Us Care for You: No Feels Safe at Home: Yes Safety Concerns: Feels Safe At This Time Smoking Status: Former smoker Cigarettes Per Day: 10 YEARS AGO ; Smoking End Date: 2008 ; Second Hand Exposure: No ; Hx Alcohol Use: Yes Alcohol type: beer and hard liquor Hx Substance Use: No Review of Systems Review of Systems: All systems reviewed & are unremarkable except as noted in HPI & below Nothing additional to add Physical Exam Physical Exam: General: no acute distress and stated age Head: normocephalic, no masses, lesions, tenderness or abnormalities Eyes: conjunctiva are pink and non-injected, sclera clear Neck: supple, no adenopathy, no bruits, normal jugular venous pulse, no hepatojugular reflux Chest: normal shape and normal respiratory effort Lungs: clear to auscultation and percussion Cardiac Exam: - regular rate & rhythm, no murmurs gallops or rubs - normal S1, normal S2 Pulses: 2(+) throughout Abdomen: abdomen soft, non-tender, no abnormal masses and no hepatosplenomegaly Musculoskeletal: no gait disturbance, no joint inflammation, no deforming arthritis Extremities: no edema and no cyanosis Neuro: grossly normal exam Results & Data Vital Signs (Past 12 Hours) Vital Signs Temp Pulse Resp BP Pulse Ox Pulse Ox 12/25/19 16:01 80 97 12/25/19 13:45 153 H 21 123/67 97 12/25/19 13:40 146 H 24 97 12/25/19 13:31 130 H 21 111/35 L 95 12/25/19 13:30 126 H 18 95 12/25/19 13:20 120 H 15 96 12/25/19 13:16 132 H 15 115/75 97 12/25/19 13:10 135 H 21 91 12/25/19 13:06 108 H 22 145/96 H 94 12/25/19 13:01 121 H 19 96 12/25/19 13:00 128 H 20 121/85 95 12/25/19 12:50 128 H 18 98 12/25/19 12:45 132 H 18 112/83 99 12/25/19 12:40 117 H 20 99 12/25/19 12:32 122 H 25 H 135/92 100 12/25/19 12:31 110 H 18 12/25/19 12:04 146 H 22 124/106 H 96 12/25/19 12:01 132 H 23 68/53 L 96 12/25/19 12:00 140 H 19 100 12/25/19 11:50 122 H 17 97 12/25/19 11:45 115 H 16 134/75 97 12/25/19 11:40 125 H 23 72 L 12/25/19 11:32 110 H 15 93 12/25/19 11:31 117 H 19 104/85 95 12/25/19 11:30 93 H 16 89 L 12/25/19 11:25 121 H 21 147/83 H 96 12/25/19 11:20 118 H 22 98 12/25/19 11:11 126 H 25 H 93 12/25/19 11:09 124 H 13 152/128 H 100 12/25/19 11:08 135 H 132/94 12/25/19 11:00 36.8 C 135 H 24 132/64 100 Laboratory Results Laboratory Results - last 24 hr 12/25/19 12/25/19 12/25/19 10:52 10:52 10:52 WBC 4.92 RBC 5.74 Hgb 17.4 Hct 48.8 MCV 85.0 MCH 30.3 MCHC 35.7 RDW Std Deviation 41.5 RDW Coeff of Malissa 13.5 Plt Count 219 MPV 10.2 Immature Gran % (Auto) 0.4 Neut % (Auto) 52.0 Lymph % (Auto) 32.9 [place] % (Auto) 10.6 Eos % (Auto) 3.7 Baso % (Auto) 0.4 Immature Gran # (Auto) 0.02 Neut # (Auto) 2.56 Lymph # (Auto) 1.62 [place] # (Auto) 0.52 Eos # (Auto) 0.18 Baso # (Auto) 0.02 PT 10.3 INR 1.0 APTT 28.5 PTT Ratio 1.1 Sodium 139 Potassium 3.4 L Chloride 103 Carbon Dioxide 29 Anion Gap 7.0 BUN 23 H Creatinine 1.15 Est Cr Clr Drug Dosing 76.1 Est GFR ( Amer) 77.0 Est GFR (Non-Af Amer) 66.4 BUN/Creatinine Ratio 20.1 H Glucose 98 Calcium 9.9 Magnesium 2.0 Troponin I < 0.015 Lipase 88 12/25/19 10:52 WBC RBC Hgb Hct MCV MCH MCHC RDW Std Deviation RDW Coeff of Malissa Plt Count MPV Immature Gran % (Auto) Neut % (Auto) Lymph % (Auto) [place] % (Auto) Eos % (Auto) Baso % (Auto) Immature Gran # (Auto) Neut # (Auto) Lymph # (Auto) [place] # (Auto) Eos # (Auto) Baso # (Auto) PT INR APTT PTT Ratio Sodium Potassium Chloride Carbon Dioxide Anion Gap BUN Creatinine Est Cr Clr Drug Dosing Est GFR ( Amer) Est GFR (Non-Af Amer) BUN/Creatinine Ratio Glucose Calcium Magnesium Cancelled Troponin I Lipase Medications Administered Current Inpatient Medications Acetaminophen (Tylenol) 650 mg PO Q4H PRN PRN Reason: Moderate Pain Stop: 01/24/20 16:00 Acetaminophen (Tylenol) 1,000 mg PO HS [facility] Stop: 01/24/20 20:59 Diphenhydramine HCl (Benadryl Capsule) 50 mg PO HS [facility] Stop: 01/24/20 20:59 Diltiazem HCl 125 mg/ Dextrose 125 mls @ 10 mls/hr IV .[id number] [facility]; Protocol Stop: 01/24/20 11:14 Last Titration: 12/25/19 14:57 Dose: 12.5 mg/hr, 12.5 mls/hr Documented by: Heparin Sodium/Dextrose (Heparin Sodium/Dextrose) 25,000 units in 500 mls @ 20 mls/hr IV .Q24H JEWELL; Protocol Stop: 01/24/20 13:14 Last Admin: 12/25/19 14:55 Dose: 1,000 units/hr, 20 mls/hr Documented by: Ioversol (Optiray 320 125ml) 118 ml IV ONCE PRN PRN Reason: Interaction Checking Stop: 12/29/19 12:16 Last Admin: 12/25/19 12:17 Dose: 118 ml Documented by: Metoprolol Succinate (Toprol Xl) 25 mg PO QAM [facility] Stop: 01/24/20 16:24 Ondansetron HCl (Zofran) 4 mg IV Q4H PRN PRN Reason: Nausea And Vomiting Stop: 01/24/20 16:00 Pantoprazole Sodium (Protonix) 40 mg PO QAM [facility] Stop: 01/25/20 08:59 Tamsulosin HCl (Flomax) 0.4 mg PO QAM [facility] Stop: 01/25/20 08:59 Vitamin D (Vitamin D3) 5,000 units PO QPM [facility] Stop: 01/24/20 20:59 Zolpidem Tartrate (Ambien) 10 mg PO HSZ [facility] Stop: 01/24/20 21:59 (1) Syncope Syncope type: unspecified Qualified Code(s): R55 - Syncope and collapse
[2019-12-25] MEDS ORDERED: POTASSIUM CHLORIDE 20 MEQ TABCR PO STA (16:29)
[2019-12-25] MEDS ORDERED: POTASSIUM CHLORIDE / WTR 10 MEQ/100 ML PLCT IV SCH (16:30)
[2019-12-25] MEDS: METOPROLOL SUCC 25MG EXT REL TAB PO SCH (17:19)
[2019-12-25 19:42] LABS: Partial Thromboplastin Ratio 1.3; Partial Thromboplastin Time 34.2 Seconds (21.0-31.0)
[2019-12-25] MEDS ORDERED: HEPARIN IV BOLUS 4,500 UNITS in SYRINGE 0 ML IV ONE (20:15)
[2019-12-25] MEDS: CHOLECALCIFEROL 1,000 UNITS 25 MCG TAB PO SCH (20:30)
[2019-12-25] MEDS: ACETAMINOPHEN 500 MG TAB PO SCH (20:30)
[2019-12-25] MEDS ORDERED: NON-FORMULARY MEDICATION (Diphenhydramine-Acetaminophen [Tylenol Pm Extra Strength] 2 TAB) PO SCH (21:00)
[2019-12-25] MEDS ORDERED: cloNIDine HCL 0.3 MG TAB PO SCH (21:00)
[2019-12-25] MEDS: ZOLPIDEM TARTRATE 10 MG TAB PO SCH (22:26)
[2019-12-26 02:09] LABS: Hematocrit (blood only) 42.9 % (42-52); Hemoglobin 15.4 g/dL (14.0-18.0); Mean Corpuscular Hemoglobin 30.3 pg (25-34); Mean Corpuscular Hgb Conc 35.9 g/dL (32-36); Mean Corpuscular Volume 84.4 fL (80-100); Mean Platelet Volume 9.6 fL (7.4-10.4); Platelet Count 204 K/uL (130-400); RDW Coefficient of Variation 13.5 % (11.5-14.5); RDW Standard Deviation 41.3 fL (36.4-46.3); Red Blood Count 5.08 M/uL (4.7-6.1); White Blood Count 6.49 K/uL (4.8-10.8)
[2019-12-26 02:18] LABS: Partial Thromboplastin Ratio 1.6; Partial Thromboplastin Time 42.7 Seconds (21.0-31.0)
[2019-12-26 02:28] LABS: Albumin Level 3.7 gm/dl (3.4-5.0); BUN Creatinine Ratio 21.3 (10-20); Calcium 8.8 mg/dl (8.5-10.1); Creatinine Clr Calc Pharmacy 85.4 ml/min; Est GFR (Non-African American) 76.8; Potassium 3.4 mmol/L (3.5-5.1)
[2019-12-26 02:38] LABS: Albumin Globulin Ratio 1.1 (0.9-2); Bilirubin,Total 0.4 mg/dl (0.2-1); Globulin 3.4 gm/dl (2.5-4.0); Thyroid Stimulating Hormone 3.45 uIu/ml (0.300-4.500); Total Protein 7.1 gm/dl (6.4-8.2)
[2019-12-26] MEDS ORDERED: HEPARIN IV BOLUS 3,000 UNITS in SYRINGE 0 ML IV ONE (04:00)
[2019-12-26] MEDS ORDERED: HydrALAZINE HCL 20 MG/ML VIAL IV STA (06:32)
[2019-12-26] MEDS: PANTOprazole 40 MG TAB PO SCH (08:38)
[2019-12-26] MEDS: METOPROLOL SUCC 25MG EXT REL TAB PO SCH ×2 (08:38→21:16)
[2019-12-26] MEDS: TAMSULOSIN HCL 0.4 MG CAP PO SCH (08:38)
[2019-12-26] MEDS: HEPARIN SODIUM/DEXTROSE 25,000 UNITS/500 ML BAG IV SCH (09:56)
[2019-12-26 10:52] LABS: Partial Thromboplastin Ratio 1.4
--- NOTE | 2019-12-26 11:43 | Electrocardiogram Report ---
Test Reason : Blood Pressure : / mmHG Vent. Rate : 115 BPM Atrial Rate : 101 BPM P-R Int : 000 ms QRS Dur : 088 ms QT Int : 286 ms P-R-T Axes : 000 -07 020 degrees QTc Int : 395 ms Atrial fibrillation with rapid ventricular response with premature ventricular or aberrantly conducte d complexes Nonspecific T wave abnormality Abnormal ECG When compared with ECG of 07-JUN-2019 10:35, Atrial fibrillation has replaced Sinus rhythm Vent. rate has increased BY 49 BPM Confirmed by Dangelo Lewis ([id number]) on 12/26/2019 11:42:31 AM Referred By: REFERRED SELF Confirmed By:Dangelo Lewis
[2019-12-26] MEDS ORDERED: Nursing to Pharmacy Communication ONE (12:41)
[2019-12-26] MEDS ORDERED: HEPARIN IV BOLUS 4,500 UNITS in SYRINGE 0 ML IV ONE (13:15)
[2019-12-26] MEDS ORDERED: LISINOPRIL/HCTZ 20/12.5MG 1 TAB TAB PO STA (14:16)
--- NOTE | 2019-12-26 14:33 | Cardiology Progress Note ---
Date of Service December 26, 2019 Assessment & Plan (1) Atrial fibrillation with RVR: (2) Syncope: (3) Hyperlipidemia: (4) Hypertension: The patient had 1 of his episodes this morning with flushing and nausea after eating. The patient had a normal sinus rhythm on telemetry without arrhythmias. His vital signs including blood pressure were normal. He was being evaluated by [facility] for these symptoms. I am going to ask the GI service to see him. I am concerned that he may have something unusual like carcinoid syndrome causing his symptoms. He could also be experiencing biliary stasis or something else unusual. He is hypertensive today. I will increase his beta-anderson and add back his lisinopril/hydrochlorothiazide that he was taking at home. I do not believe that there is any indication for clonidine for this patient. The clonidine may be exacerbating his problem as he was being given a once a day dose which can lead to rebound hypertension. The patient is complaining about blood draws for heparin adjustment. I will DC his heparin today and start him on Eliquis. Subjective The patient had an episode of his symptoms this morning. After eating breakfast he became flushed, nauseated and lightheaded. On telemetry he was maintaining sinus rhythm without any evidence of arrhythmias. Nursing took his vital signs and his blood pressure was adequate. After several minutes his symptoms passed. Review of Systems Review of Systems: All systems reviewed & are unremarkable except as noted in HPI & below Nothing additional to add Physical Exam Physical Exam: General: no acute distress and stated age Head: normocephalic, no masses, lesions, tenderness or abnormalities Eyes: conjunctiva are pink and non-injected, sclera clear Neck: supple, no adenopathy, no bruits, normal jugular venous pulse, no hepatoj ugular reflux Chest: normal shape and normal respiratory effort Lungs: clear to auscultation and percussion Cardiac Exam: - regular rate & rhythm, no murmurs gallops or rubs - normal S1, normal S2 Pulses: 2(+) throughout Abdomen: abdomen soft, non-tender, no abnormal masses and no hepatosplenomegaly Musculoskeletal: no gait disturbance, no joint inflammation, no deforming arthritis Extremities: no edema and no cyanosis Neuro: grossly normal exam Results & Data Vital Signs (Past 12 Hours) Vital Signs Temp Pulse Pulse Resp BP BP Pulse Ox 12/26/19 12:00 36.7 C 80 19 174/92 H 96 12/26/19 10:24 36.5 C 82 18 164/94 H 99 12/26/19 08:00 103 H 12/26/19 07:38 168/100 H 12/26/19 06:23 36.6 C 79 19 190/111 H 98 12/26/19 02:52 36.6 C 68 20 175/95 H 99 Laboratory Results Laboratory Results - last 24 hr 12/25/19 12/25/19 12/25/19 16:48 16:48 19:11 WBC RBC Hgb Hct MCV MCH MCHC RDW Std Deviation RDW Coeff of Malissa Plt Count MPV APTT 34.2 H PTT Ratio 1.3 Sodium Potassium Chloride Carbon Dioxide Anion Gap BUN Creatinine Est Cr Clr Drug Dosing Est GFR ( Amer) Est GFR (Non-Af Amer) BUN/Creatinine Ratio Glucose Estimat Average Glucose Hemoglobin A1c Calcium Total Bilirubin AST ALT Alkaline Phosphatase Troponin I < 0.015 Total Protein Albumin Globulin Albumin/Globulin Ratio Triglycerides Cholesterol LDL Cholesterol, Calc VLDL Cholesterol, Calc HDL Cholesterol Cholesterol/HDL Ratio TSH Hepatitis C Ab Screen Neg 12/26/19 12/26/19 12/26/19 01:58 01:58 01:58 WBC 6.49 RBC 5.08 Hgb 15.4 Hct 42.9 MCV 84.4 MCH 30.3 MCHC 35.9 RDW Std Deviation 41.3 RDW Coeff of Malissa 13.5 Plt Count 204 MPV 9.6 APTT 42.7 H PTT Ratio 1.6 Sodium Potassium Chloride Carbon Dioxide Anion Gap BUN Creatinine Est Cr Clr Drug Dosing Est GFR ( Amer) Est GFR (Non-Af Amer) BUN/Creatinine Ratio Glucose Estimat Average Glucose Hemoglobin A1c Calcium Total Bilirubin AST ALT Alkaline Phosphatase Troponin I < 0.015 Total Protein Albumin Globulin Albumin/Globulin Ratio Triglycerides Cholesterol LDL Cholesterol, Calc VLDL Cholesterol, Calc HDL Cholesterol Cholesterol/HDL Ratio TSH Hepatitis C Ab Screen 12/26/19 12/26/19 12/26/19 01:58 01:58 10:31 WBC RBC Hgb Hct MCV MCH MCHC RDW Std Deviation RDW Coeff of Malissa Plt Count MPV APTT 39.0 H PTT Ratio 1.4 Sodium 138 Potassium 3.4 L Chloride 106 Carbon Dioxide 29 Anion Gap 3.0 BUN 22 H Creatinine 1.02 Est Cr Clr Drug Dosing 85.4 Est GFR ( Amer) 89.0 Est GFR (Non-Af Amer) 76.8 BUN/Creatinine Ratio 21.3 H Glucose 94 Estimat Average Glucose Pending Hemoglobin A1c Pending Calcium 8.8 Total Bilirubin 0.4 AST 31 ALT 85 H Alkaline Phosphatase 51 Troponin I Total Protein 7.1 Albumin 3.7 Globulin 3.4 Albumin/Globulin Ratio 1.1 Triglycerides 173 H Cholesterol 152 LDL Cholesterol, Calc 90 VLDL Cholesterol, Calc 35 HDL Cholesterol 27 Cholesterol/HDL Ratio 6 TSH 3.450 Hepatitis C Ab Screen Medications Administered Current Inpatient Medications Acetaminophen (Tylenol) 650 mg PO Q4H PRN PRN Reason: Moderate Pain Stop: 01/24/20 16:00 Acetaminophen (Tylenol) 1,000 mg PO [facility] Stop: 01/24/20 20:59 Last Admin: 12/25/19 20:30 Dose: 1,000 mg Documented by: Diphenhydramine HCl (Benadryl Capsule) 50 mg PO [facility] Stop: 01/24/20 20:59 Last Admin: 12/25/19 20:29 Dose: 50 mg Documented by: Lisinopril/HCTZ (Prinzide 20/12.5mg) 1 tab PO [facility] Stop: 01/26/20 08:59 Ioversol (Optiray 320 125ml) 118 ml IV ONCE PRN PRN Reason: Interaction Checking Stop: 12/29/19 12:16 Last Admin: 12/25/19 12:17 Dose: 118 ml Documented by: Metoprolol Succinate (Toprol Xl) 25 mg PO BID [facility] Stop: 01/25/20 20:59 Ondansetron HCl (Zofran) 4 mg IV Q4H PRN PRN Reason: Nausea And Vomiting Stop: 01/24/20 16:00 Last Admin: 12/26/19 09:58 Dose: 4 mg Documented by: Pantoprazole Sodium (Protonix) 40 mg PO [facility] Stop: 01/25/20 08:59 Last Admin: 12/26/19 08:38 Dose: 40 mg Documented by: Tamsulosin HCl ([facility]omax) [facility] Stop: 01/25/20 08:59 Last Admin: 12/26/19 08:38 Dose: 0.4 mg Documented by: Vitamin D (Vitamin D3) 5,000 units PO QPM [facility] Stop: 01/24/20 20:59 Last Admin: 12/25/19 20:30 Dose: 5,000 units Documented by: Zolpidem Tartrate (Ambien) 10 mg PO HSZ [facility] Stop: 01/24/20 21:59 Last Admin: 12/25/19 22:26 Dose: 10 mg Documented by: (1) Syncope Syncope type: unspecified Qualified Code(s): R55 - Syncope and collapse
[2019-12-26] MEDS: ACETAMINOPHEN 500 MG TAB PO SCH (21:16)
[2019-12-26] MEDS: APIXABAN 5 MG TABLET PO SCH (21:16)
[2019-12-26] MEDS: CHOLECALCIFEROL 1,000 UNITS 25 MCG TAB PO SCH (21:17)
[2019-12-26] MEDS: ZOLPIDEM TARTRATE 10 MG TAB PO SCH (22:47)
--- NOTE | 2019-12-26 22:57 | Hospitalist Progress Note ---
Date of Service December 26, 2019 Assessment & Plan (1) Atrial fibrillation with RVR: -Admit to telemetry -He is back to being sinus. -Stopped heparin and cardizem. -concern over possible carcinoid syndrome, will be on evaluated by GI service -Holter monitor in place, ordered by Dr. Rivera as outpatient, placed 5 days ago for 2-week timeframe -Cardiology consulted, Dr. Burton with [facility] since has already established care -restarted apixaban. (2) Syncope: -Unwitnessed, CT of the head is negative for any acute intracranial abnormalities/hemorrhage -Check A1c, lipid panel with fasting labs -2D echo ordered -Cardiology consulted as above -Holding aspirin, can restart tomorrow. (3) Hypertension: -will reatrt his bp meds. -BP stable at 123/67 (4) Hyperlipidemia: -LDL 90 will hold off statin for now. (5) Stroke: History of such 10 years ago (6) Osteoarthritis: -Chronic (7) Fatty liver: -Noted (8) BPH (benign prostatic hyperplasia): -Continue Flomax (9) Hypokalemia: - replaced (10) DVT prophylaxis: was on heparin drip. now on apixaban. CODE: Full code Disposition: Patient from home, lives with , likely to remain in the hospital x1 to 2 days Subjective Patient reports feeling well. He states he was in bed today in the AM and had another episode of being flushed. He states that cardiology had already seen him after the episode and and had checked the monitor but he had no arrythmias. Patient denies any palpitations today. Review of Systems Review of Systems: Constitutional: No fever, sweats or chills Eyes: No diplopia, no worsening or blurred vision ENT: normal hearing, no trouble swallowing Respiratory: No cough, sputum, dyspnea at rest or on exertion Cardiovascular: As per HPI. No chest pain, tightness or palpitations Abdomen: + nausea, No pain, vomiting, diarrhea or constipation Musculoskeletal: No joint pain, calf pain, swelling Neurologic: No weakness, numbness/tingling, or balance problems Psychiatric: No anxiety or depression Skin: No rash or itch Physical Exam Physical Exam: General: awake, alert, no apparent distress, + obese Head: Normocephalic, atraumatic ENT: PERRL, EOMI, no pharyngeal exudate, mucous membranes moist Chest: Clear to auscultation, on room air, no adventitious breath sounds Cardiac: RRR,, no murmur, no JVD, normal peripheral pulses, good capillary refill Abdominal: NABS x 4 quadrants, soft, nondistended, nontender to palpation, no rebound, guarding or tenderness Extremities: Normal inspection, no peripheral edema or erythema, calfs nontender to palpation Psych: Normal mood and affect Neuro: AAO x 3, strength intact bilaterally and related 5/5, no motor deficits, speech is clear, no peripheral sensory deficits Results & Data [facility]) Vital Signs (Past 12 Hours) Vital Signs Temp Pulse Resp BP BP Pulse Ox 12/26/19 18:48 37.0 C 76 18 168/90 H 95 12/26/19 15:02 36.6 C 81 18 167/91 H 97 12/26/19 12:00 36.7 C 80 19 174/92 H 96 PG Care Time/CCT Total # of Minutes Spent Total Time Spent with Patient: Total time spent is greater than 50% in coordination of care (as documented) at patient's floor/unit and/or counseling patient: Coding Level of Care Code 70482 Subseq Hosp Care Lvl 3 Diagnoses Atrial fibrillation with RVR I48.91 Syncope R55 Syncope type: unspecified Hypertension I10 Hyperlipidemia E78.5 Stroke I63.9 Osteoarthritis M19.90 Fatty liver K76.0 BPH (benign prostatic hyperplasia) N40.0 Hypokalemia E87.6 DVT prophylaxis Z29.9 Time Spent (min) 35 (1) Syncope Syncope type: unspecified Qualified Code(s): R55 - Syncope and collapse
[2019-12-27 06:27] LABS: Hematocrit (blood only) 45.5 % (42-52); Hemoglobin 15.8 g/dL (14.0-18.0); Mean Corpuscular Hemoglobin 29.8 pg (25-34); Mean Corpuscular Hgb Conc 34.7 g/dL (32-36); Mean Corpuscular Volume 85.7 fL (80-100); Platelet Count 187 K/uL (130-400); RDW Coefficient of Variation 13.8 % (11.5-14.5); RDW Standard Deviation 42.8 fL (36.4-46.3); Red Blood Count 5.31 M/uL (4.7-6.1); White Blood Count 5.14 K/uL (4.8-10.8)
[2019-12-27 06:34] LABS: Estimated Average Glucose 105 mg/dl; Hemoglobin A1C 5.3 % (4.5-5.6)
[2019-12-27 06:47] LABS: Albumin Level 3.9 gm/dl (3.4-5.0); BUN Creatinine Ratio 16.8 (10-20); Calcium 9.5 mg/dl (8.5-10.1); Creatinine Clr Calc Pharmacy 77.8 ml/min; Est GFR (African American) 80.3; Est GFR (Non-African American) 69.3; Potassium 3.5 mmol/L (3.5-5.1)
[2019-12-27 06:50] LABS: Albumin Globulin Ratio 1.1 (0.9-2); Bilirubin,Total 0.7 mg/dl (0.2-1); Globulin 3.5 gm/dl (2.5-4.0); Total Protein 7.4 gm/dl (6.4-8.2)
[2019-12-27] MEDS: PANTOprazole 40 MG TAB PO SCH (08:28)
[2019-12-27] MEDS: APIXABAN 5 MG TABLET PO SCH (08:29)
[2019-12-27] MEDS: TAMSULOSIN HCL 0.4 MG CAP PO SCH (08:29)
[2019-12-27] MEDS: METOPROLOL SUCC 25MG EXT REL TAB PO SCH (08:29)
[2019-12-27] MEDS ORDERED: LISINOPRIL/HCTZ 20/12.5MG 1 TAB TAB PO SCH (09:00)
--- NOTE | 2019-12-27 10:56 | XCELERA ---
[id number] [id number]
--- NOTE | 2019-12-27 14:09 | Gastrointestinal Consultation ---
Date of Consultation December 27, 2019 Assessment & Plan (1) Flushing: Mr. Chavez experiences flushing and nausea in the setting of hx of A-fib. It is reasonable to to r/o carcinoid syndrome. Plan: To r/o carcinoid syndrome: Would check 24 hr urine for 5HIAA Would check a serum Chromogranin level Would have pt undergo CT abd/pelvis with IV contrast. Pt wishes for discharge, so it is reasonable to undergo this workup as an OP. I will place these orders in the [facility] OP chart. Pt to get blood/urine tests and CT done as an OP and have an appt in the [facility] Gastro clinic to discuss results. The above plan was discussed with the pt and his who agreed to the work up. This pt was seen with Dr. Diaz who developed and directed the above plan. This pt was discussed with Dr. Jesse Whitaker who plans to discharge the pt today. Present on Admission?: Yes Supervising Physician Co-Signing Physician Notes I have personally seen and examined the patient with Elsa Avendaño. Her note reflects my exam and findings. I agree with her impression and plan. Lab and urine tests as outlined above. Abdominal CT if not already done to look for lesion. Follow up in GI to follow up results. Timmy Diaz M.D. History of Present Illness Reason for Consultation: ? carcinoid syndrome Requesting Physician: Dr. Burton Attending Physician: Jesse Whitaker MD History of Present Illness Mr. Neal Chavez is a 64 yr old male pt of Dr. Luis Armando Tyler, with a hx of A-fib with RVR, Hyperlipidemia, HTN, BPH and osteoarthritis who presented to the ED on 12/25 for a syncopal episodes. On arrival, CT head with old CVA, nothing acute, CT and CTA chest with mild cardiomegaly, no PE. Pt was in A-fib with RVR and was placed on a telemetry fl oor and monitored. Dr. Burton talked with me and explained that the pt has been having episodes of flushing and nausea and that he experienced this here at [facility] w/o worrisome findings on cardiac monitoring. Consult was placed to r/o carcinoid symptoms. The pt and his who is at the bedside tell us that he has had these symptoms for a few years, initially very occasionally but in the past few months, frequently. He describes feeling flushed, nausea and weakness that lingers after the episode. He actually mentioned that he was experiencing this during my interview with him and he was witnessed to have a billy in his skin color, becoming more flushed. Though he has alternating bowel habits, he hasn't typically experienced diarrhea with these episodes. He feels "sick," but does not get significant abnormal pain with these. He was seen by Dr. Ramos, underwent EGD and colonoscopy without cause of his symptoms (normal EGD, two diminutive polyps on colonoscopy as well diverticulosis and evidence of an end to end anastomosis in the sigmoid colon). He was prescribed Linzess which he says caused more frequent BMs but no change in his flushing and nausea. He then saw [facility] who referred him to cardiology. The pt does not believe that further GI testing was completed. Recent TSH was normal. Allergies Allergy/AdvReac Type Severity Reaction Status Date / Time No Known Allergies Allergy Verified 12/25/19 12:39 Home Medications Home Medications Medication Instructions Recorded Confirmed Type lisinopril-hydrochlorothiazide 1 tab PO QAM 11/26/18 12/25/19 History tamsulosin 0.4 mg PO QAM 11/26/18 12/25/19 History zolpidem [Ambien] 10 mg PO HS 11/26/18 12/25/19 History cholecalciferol (vitamin D3) 5,000 unit PO QPM 02/09/19 12/25/19 History [Vitamin D3] diphenhydramine-acetaminophen 2 tab PO HS 02/09/19 12/25/19 History [Tylenol PM Extra Strength] esomeprazole magnesium [Nexium] 20 mg PO QAM 02/09/19 12/25/19 History apixaban [Eliquis] 5 mg PO BID #60 tab 12/27/19 Rx metoprolol succinate 25 mg PO BID #60 tab 12/27/19 Rx Patient History Medical History BPH (benign prostatic hyperplasia) Diverticulitis Fatty liver GERD (gastroesophageal reflux disease) Hyperlipidemia Hypertension Insomnia Osteoarthritis Stroke 10 YEARS AGO (REASON FOR ASA) Surgical History History of bowel resection WITH COLOSTOMY AND REVERSAL History of cataract surgery 02/16/2019 [facility] [place] History of colonoscopy History of colostomy reversal History of esophagogastroduodenoscopy (EGD) History of herniorrhaphy Hx of LASIK Family History Other No pertinent family history Social History Preferred Language: Belgian Communication Ability: Effective Electric Switch Repairer Required: No Beliefs That Will Affect Care: None marital status: Current Living Situation: Spouse Feels Safe at Home: Yes Smoking Status: Former smoker Cigarettes Per Day: 10 YEARS AGO ; Second Hand Exposure: No ; Hx Alcohol Use: Yes Alcohol type: beer and hard liquor Hx Substance Use: No Review of Systems Review of Systems: ROS: Gen: + syncopal episode on 12/25; + Intermittent weakness; + flushing; no fevers, weight loss Eyes: No eye redness, or pain, no recent vision changes Resp: No SOB, no cough Cardio: + a-fib with RVR on arrival. No chest pain GI: See HPI : Denies pain on urination Skin: No jaundice, itching or new rashes Physical Exam Constitutional: WD/WN, vitals as above Eyes: PERRL, conjunctivae normal, anicteric sclerae ENMT: external ear and nose normal, oropharynx normal Neck: trachea midline, no thyromegaly Respiratory: normal respiratory effort, lungs clear to auscultation Cardiovascular: irregular rhythm, normal rate, no murmurs Gastrointestinal (Abdomen): normal bowel sounds, soft, nontender, no hepatosplenomegaly Musculoskeletal: no cyanosis or clubbing, extremities motor strength 5/5 Skin: no rashes and no jaundice flushed/red appearance at the time of symptoms; no diaphoresis Neurologic: PERRL, EOMI, accommodation nl, no face palsy, no dysarthria Psychiatric: A+Ox3, euthymic affect Lymphatic: no cervical or axillary lymphadenopathy Results & Data Vital Signs (Past 12 Hours) Vital Signs Temp Pulse Pulse Resp BP BP Pulse Ox 12/27/19 13:20 36.9 C 70 20 155/83 H 161/95 H 97 12/27/19 11:26 36.9 C 70 20 161/95 H 97 12/27/19 08:00 75 12/27/19 07:05 36.8 C 74 20 155/83 H 98 12/27/19 03:39 36.5 C 60 18 167/91 H 96 Laboratory Results WBC 5, Hb 15, Hct 45, BUN 19, Cr 1.11, K 3.5, Diagnostic Findings EGD 12/07/18 Dr. Ramos: - Z-line regular, 43 cm from the incisors. - Normal esophagus. - Normal stomach. - Normal examined duodenum. - No specimens collected. Colonoscopy 12/07/18: - Patent end-to-side colo-colonic anastomosis, characterized by healthy appearing mucosa. - Non-bleeding internal hemorrhoids. - Diverticulosis in the sigmoid colon, in the transverse colon and in the cecum. - One 3 mm polyp in the cecum, removed with a cold biopsy forceps. Resected and retrieved. - One 3 mm polyp in the proximal ascending colon, removed with a cold biopsy forceps. Resected and retrieved. Colon Path: tubular adenomas.
--- NOTE | 2019-12-27 16:51 | Discharge Summary ---
Date of Service December 27, 2019 Admission HPI Per Admitting Provider This is a 64 yo M with PMHx of HTN, HLD, stroke 10 years ago, BPH, GERD, insomnia, fatty liver, diverticulitis, who presents with syncopal episode in the setting of A. fib with RVR. The patient is present with his at bedside. He notes that he woke up this morning and felt somewhat nauseous, took 2 Advil along with breakfast because he did not quite feel well. He reports he was supposed to go to a today with his . She went by herself alone and he stayed at home on the couch. He reports getting up to walk down the hallway, felt like he was dreaming and remembers hitting his elbow and his head and woke up on the floor. Patient does not have any abrasions or lesions on either of those locations. He is not sore. He called his and she came home. The patient has actually been wearing a Holter monitor for the past 5 days, prescribed by Dr. Rivera with [facility] due to the same sensation of nausea/slight lightheadedness on and off over the past 5 years. He reports that he typically has been able to get over it himself however it has been taking longer for the feeling to resolve. Found to be in AFib with HR 153. Cardizem gtt. Starting on heparin gtt. K+ 3.4, will replace. Principal Diagnosis Afib with RVR Flushing syndromes Discharge Data Allergies Allergy/AdvReac Type Severity Reaction Status Date / Time No Known Allergies Allergy Verified 12/25/19 12:39 Consultations 12/25/19 13:17 ED Decision to Admit Stat 12/25/19 16:01 Consult Cardiology Routine Consult Case Management - Discharge Planning Routine 12/26/19 14:20 Consult Gastroenterology Routine Ordered Studies 12/25/19 11:02 CT angio chest PE protocol Stat 12/25/19 11:07 CT head/brain wo con Stat Hospital Course (1) Atrial fibrillation with RVR: He was as high as 145 this admission. He was back to being sinus by discharge. - Discharged on metoprolol XL 25 mg PO BID - Discharged on Eliquis with free month card given - Concern over possible carcinoid syndrome -> Seen by [facility] and will pursue outpatient work-up. - Holter monitor follow up as outpatient. (2) Syncope: Unwitnessed, CT of the head is negative for any acute intracranial abnormalities/hemorrhage. Other than his atrial fibrillation, no other arrythmias noted on telemetry. - As above, Holter monitor sent in by patient today. Cardiology will follow up. - 2D echo ordered -> EF 55-60%, mild LVH. No valvular issues. - Holding aspirin; discharged off ASA for anticoagulation (3) Hypertension: - BP stable at 123/67 Adjusted meds: - Stopped amlodipine and clonidine - Started metoprolol XL for rate-control when he goes into afib. (4) Hyperlipidemia: - LDL 90 will hold off statin for now. (5) Stroke: History of such 10 years ago - Mild right-sided residual defects (6) Osteoarthritis: -Chronic (7) Fatty liver: -Noted (8) BPH (benign prostatic hyperplasia): -Continue Flomax (9) Hypokalemia: - replaced (10) DVT prophylaxis: was on heparin drip. now on apixaban. CODE: Full code Disposition: Patient from home, lives with , likely to remain in the hospital x1 to 2 days Total Time Total Time Spent Total Time Spent (In Minutes): 45 Discharge Plan Discharge Items Patient Disposition: Home - Self-Care Reason For Visit: AFIB WITH RVR Discharge Diagnosis: Atrial fibrillation with rapid heart rate Flushing episodes that may be related to GI issues Activity: Resume your previous activity Non-emergency contact: Primary Care Provider, Cloth Examiner Hand and Gastro enterologist Call non-emergency contact if: your symptoms worsen Follow-up/Referrals: Mega Tyler DO [Primary Care Provider] - Perez Burton DO [Cloth Examiner Hand] - (Please see Dr. Rivera or Dr. Burton in his office for follow up of your heart monitor.) Timmy Diaz [Physician] - (Please see Dr. Diaz in his office in 2- 3 weeks after your testing results are back.) Diet: Heart Healthy Addtl Attending Provider Instructions: You were admitted to the hospital with episodes of flushing and dizziness. We found you had a heart rhythm that sometimes caused your heart to speed up to a high rate of speed. We have adjusted your medications to help keep your heart rate normal and also to prevent stroke which can be caused by a clot when you have atrial fibrillation. The heart doctors saw you and evaluated you and have adjusted some of your medications. The GI doctors will follow up with you regarding further testing for your GI symptoms which may tie in with the flushing episodes. Pending Studies at Discharge: No Stand-Alone Forms: My [facility], Smoking Cessation Medications and DC Order Prescriptions: New Eliquis 5 mg Tablet 5 mg PO BID Qty: 60 RF: 0 metoprolol succinate 25 mg Tablet Extended Release 24 Hr 25 mg PO BID Qty: 60 RF: 0 Continued tamsulosin 0.4 mg Capsule 0.4 mg PO QAM RF: 0 lisinopril-hydrochlorothiazide 20-25 mg Tablet 1 tab PO QAM RF: 0 zolpidem [Ambien] 10 mg Tablet 10 mg PO HS RF: 0 diphenhydramine-acetaminophen [Tylenol PM Extra Strength] 25-500 mg Tablet 2 tab PO HS RF: 0 esomeprazole magnesium [Nexium] 20 mg Capsule,Delayed Release(Dr/Ec) 20 mg PO QAM RF: 0 cholecalciferol (vitamin D3) [Vitamin D3] 5,000 unit Tablet 5,000 unit PO QPM RF: 0 Discontinued aspirin 325 mg Tablet 325 mg PO QAM RF: 0 clonidine HCl 0.3 mg Tablet 1 tab PO PM RF: 0 amlodipine 5 mg tablet 5 mg PO PM RF: 0 Discharge Orders: Discharge Order (Routine); Ordered 12/27/19 Ordered By: Jesse Whitaker Admission Data Admit Date/Time: 12/25/19 14:00 Attending Provider: Jesse Whitaker Admit Provider: Maribell Fish Primary Care Provider: Mega Tyler Other Providers: Perez Burton ; Jesse Whitaker ; Timmy Diaz Other Interventions: Discharge Summary Assessment (RN) Last Done: 12/27/19 13:20 DC Date/Time DO NOT enter until pt leaves facility: 12/27/19 14:31 Coding Level of Care Code D/C Day Management >30 mins Diagnoses Atrial fibrillation with RVR I48.91 Syncope R55 Syncope type: unspecified Hypertension I10 Hyperlipidemia E78.5 Stroke I63.9 Osteoarthritis M19.90 Fatty liver K76.0 BPH (benign prostatic hyperplasia) N40.0 Hypokalemia E87.6 DVT prophylaxis Z29.9
== END 2019-12-27 14:31 | disposition home or self-care (01) | DRG 309 ==
LOC: ED 11:00 → 2S 14:00 → SUATTDRO 14:00 → 2S 15:03

== ENCOUNTER 2020-08-15 11:11 | Observation (INO) ==
--- NOTE | 2020-08-15 11:38 | XRay Report ---
SINGLE VIEW CHEST CLINICAL HISTORY: Atypical chest pain. FINDINGS: An AP, portable, upright chest radiograph is compared to study dated 12/30/2019 and correlate d with chest CT dated 12/25/2019. The examination is degraded by portable technique and patient rotatio n. The heart is enlarged noting atherosclerotic calcification of the thoracic aorta. The pulmonary vasculature is noncongested. Emphysema and chronic interstitial thickening is similar to previous. Th ere is bibasilar scarring/atelectasis. No airspace consolidation or large pleural effusion is identif ied. No pneumothorax is seen. The skeletal structures are osteopenic. The bony thorax is grossly inta ct. IMPRESSION: Cardiomegaly and emphysema with no acute cardiopulmonary abnormality. ACT 112: Negative or not required by law. Electronically signed by: Angel Valladares M.D. 08/15/2020 11:37 AM
[2020-08-15 11:42] LABS: Basophils # (auto) 0.01 K/uL (0-0.2); Basophils % (auto) 0.2 %; Eosinophils # (auto) 0.18 K/uL (0-0.5); Eosinophils % (auto) 3.3 %; Hematocrit (blood only) 45.6 % (42-52); Hemoglobin 15.8 g/dL (14.0-18.0); Immature Granulocytes # (auto) 0.01 K/uL (0.00-0.02); Immature Granulocytes % (auto) 0.2 %; Lymphocytes # (auto) 1.09 K/uL (1.2-3.4); Lymphocytes % (auto) 20.3 %; Mean Corpuscular Hemoglobin 29.9 pg (25-34); Mean Corpuscular Hgb Conc 34.6 g/dL (32-36); Mean Corpuscular Volume 86.4 fL (80-100); Mean Platelet Volume 9.8 fL (7.4-10.4); Monocytes # (auto) 0.52 K/uL (0.11-0.59); Monocytes % (auto) 9.7 %; Neutrophils # (auto) 3.57 K/uL (1.4-6.5); Neutrophils % (auto) 66.3 %; Platelet Count 203 K/uL (130-400); RDW Coefficient of Variation 13.9 % (11.5-14.5); RDW Standard Deviation 43.8 fL (36.4-46.3); Red Blood Count 5.28 M/uL (4.7-6.1); White Blood Count 5.38 K/uL (4.8-10.8)
[2020-08-15 11:54] LABS: Partial Thromboplastin Ratio 1.1; Prothrombin Time 10.9 Seconds (9.0-12.0)
[2020-08-15 12:02] LABS: Alanine Aminotransferase 111 U/L (12-78); Aspartate Aminotransferase 38 U/L (15-37); BUN Creatinine Ratio 16.5 (10-20); Blood Urea Nitrogen 16 mg/dl (7-18); Calcium 9.3 mg/dl (8.5-10.1); Carbon Dioxide 27 mmol/L (21-32); Chloride 105 mmol/L (98-107); Est GFR (African American) 95.8; Est GFR (Non-African American) 82.6; Glucose 83 mg/dl (70-99); Lipase 70 U/L (73-393); Potassium 3.9 mmol/L (3.5-5.1); Sodium 140 mmol/L (136-145)
[2020-08-15 12:07] LABS: Alkaline Phosphatase 65 U/L (45-117); Bilirubin,Total 0.5 mg/dl (0.2-1); Creatine Kinase 60 U/L (39-308); Troponin I < 0.015 ng/ml (0-0.045)
--- NOTE | 2020-08-15 12:20 | Emergency Department Note ---
History of Present Illness General Chief Complaint: Chest Pain Stated Complaint: CHEST PAIN Source: patient, family (), RN notes reviewed, old records reviewed and other (cardiology) Mode of arrival: ambulatory Limitations: no limitations History of Present Illness Provider Complaint: chest pain Onset (ago): week(s) Onset (Weeks): 1 Duration: intermittent Onset: during exertion Pain Location: substernal Pain Radiation: none Severity: mild Maximum Pain Intensity: 2 Current Pain Intensity: 0 Quality: + aching Relieved By: + rest Exacerbated By: + exertion Associated symptoms: + other (SOB); no nausea, no vomiting, no diaphoresis, no sense of impending doom and no syncope Treatments prior to arrival: none This is a 64-year-old male who has a history of cardiac stents who was sent in by Dr. Gardner's office over concerns of the patient has been having chest pain as well as shortness of breath for the past week anytime he exerts himself. The patient currently is pain-free. He reports that the pain comes anytime he exerts himself. When he rests the pain goes away. He describes the pain as a ache. Home Medications Home Medications Medication Instructions Recorded Confirmed Type tamsulosin 0.4 mg PO QAM 11/26/18 08/15/20 History zolpidem [Ambien] 10 mg PO HS 11/26/18 08/15/20 History cholecalciferol (vitamin D3) 5,000 unit PO PM 02/09/19 08/15/20 History [Vitamin D3] Eliquis 5 mg PO BID #60 tab 12/27/19 08/15/20 Rx clopidogrel 75 mg PO QAM #30 tab 01/05/20 08/15/20 Rx sotalol 120 mg PO BID #60 tab 01/05/20 08/15/20 Rx Linzess 145 mcg PO DAILY 08/15/20 08/15/20 History amlodipine [Norvasc] 5 mg PO PM 08/15/20 08/15/20 History esomeprazole magnesium [Nexium] 40 mg PO QAM 08/15/20 08/15/20 History lisinopril 20 mg PO QAM 08/15/20 08/15/20 History spironolactone 12.5 mg PO QAM 08/15/20 08/15/20 History terazosin 2 mg PO PM 08/15/20 08/15/20 History Allergies Allergy/AdvReac Type Severity Reaction Status Date / Time No Known Allergies Allergy Verified 08/15/20 12:18 Past Med/Surg History Medical History (Updated 08/15/20 @ 14:16 by Mitchel Rivera MD) Anticoagulated Atrial fibrillation with RVR Atrial flutter with RVR on zio patch-so far in the past hour has not had any further episodes; continue metoprolol post PCI if recurrent episodes then start sotalol and consider tripple anti-coagulation BPH (benign prostatic hyperplasia) CAD (coronary artery disease) s/p cardiac cath got PCI to right PDA. Diverticulitis Fatty liver GERD (gastroesophageal reflux disease) Hyperlipidemia Hypertension Hypokalemia Insomnia Osteoarthritis PAF (paroxysmal atrial fibrillation) Stroke 10 YEARS AGO (REASON FOR ASA) Syncope due to arrhythmias with RVR-hopefully resolved with PCI Wide-complex tachycardia Surgical History History of bowel resection WITH COLOSTOMY AND REVERSAL History of cataract surgery 02/16/2019 [facility] [place] History of colonoscopy History of colostomy reversal History of esophagogastroduodenoscopy (EGD) History of herniorrhaphy Hx of LASIK Family History Father No problems noted. Other No pertinent family history Social History Smoking Status: Former smoker Cigarettes Per Day: 10 YEARS AGO; Second Hand Exposure: No; Hx Alcohol Use: No Hx Substance Use: No Preferred Language: Upper Sorbian Communication Ability: Effective Dog Food Dough Mixer Required: No Beliefs That Will Affect Care: None marital status: Current Living Situation: Spouse Other Information That Helps Us Care for You: No Feels Safe at Home: Yes Safety Concerns: Feels Safe At This Time Assistive Devices: Glasses Review of Systems A total of 10 systems reviewed and were otherwise negative Physical Exam Vital Signs Vital Signs - 24 hr 08/15/20 11:12 08/15/20 11:50 08/15/20 11:51 Temperature 36.5 C Temperature Source Oral Pulse Rate 71 Pulse Rate [Left Finger] 64 Respiratory Rate 18 24 Respiratory Effort / Characteristics Non-Labored Respiratory Depth Normal Blood Pressure 196/96 H Blood Pressure [Left Arm] 160/101 H Blood Pressure Mean 129 Blood Pressure Mean [Left Arm] 120 Pulse Oximetry 97 96 97 Oxygen Delivery Method Room Air Room Air Room Air Sepsis Recent Fever Within 48 Hours No Sepsis New/Unexplained Change in Mental Status N/A Sepsis Action Taken by Nursing No Action Required VITAL SIGNS - Vital signs and nursing notes were reviewed. GENERAL - 64-year-old male appearing stated age who is in no acute distress. Communicates well with provider and answers questions appropriately. SKIN - Without rashes. HEAD - NC/AT. EYES - PERRL with EOMI bilaterally. Sclera anicteric. Palpebral conjunctiva pink and moist with no injection noted. EARS - No deformities of external structures noted on gross examination bilaterally. No pain elicited with palpation of the tragus bilaterally. External auditory canals without discharge or otorrhea. Tympanic membranes pearly farris without retraction or bulging. No fluid or purulent material visualized behind the TM. Handle of malleus, umbo, cone of light, pars tensa/flaccid all easily visualized. NOSE - Midline and without cyanosis. No epistaxis or purulent drainage noted. Septum midline without deviation or septal hematoma noted. MOUTH/OROPHARYNX - Without perioral cyanosis. Buccal mucosa pink and moist and without leukoplakia. Tongue midline with equal elevation of palate bilaterally. No tonsillar hypertrophy, erythema, or exudates noted. dentition noted. NECK - Neck with FROM. Supple to palpation. lymphadenopathy noted. No nuchal rigidity. LUNGS - Chest wall symmetric without accessory muscle use, intercostals retractions, or central cyanosis. Normal vesicular breath sounds CTA B/L. No wheezes, rales, or rhonchi appreciated. CARDIAC - RRR with S1/S2. No murmur, rubs, or gallops appreciated. ABDOMEN - Abdominal contour without pulsations or visible masses. BS normoactive all four quadrants. No tenderness, palpable masses, hepatosplenomegaly, or ascites noted. EXTREMITIES - No clubbing or peripheral cyanosis. No pretibial edema present. +3/5 radial, posterior tibial, and dorsalis pedis pulses palpated throughout. +5/5 strength noted in UE/LE bilaterally. NEUROLOGIC - Cranial nerves II through XII grossly intact. Sensory intact to light touch throughout. Patellar reflexes +2/4. PSYCH - A&Ox3 and cooperates fully with examiner. Pt is very pleasant and interacts well with examiner. Course Administered Medications Discontinued Medications Amlodipine Besylate (Amlodipine Besylate 5 Mg Tab) 5 mg PO PM [facility] Stop: 09/14/20 20:59 Last Admin: 08/15/20 20:09 Dose: 5 mg Documented by: [id number] Clopidogrel Bisulfate (Clopidogrel Bisulfate 75 Mg Tab) 75 mg PO QAM [facility] Stop: 09/15/20 08:59 Last Admin: 08/16/20 10:32 Dose: 75 mg Documented by: [id number] Enoxaparin Sodium (Enoxaparin 100 Mg/1ml Syr) 100 mg SQ 2100 ONE Stop: 08/15/20 21:01 Last Admin: 08/15/20 20:11 Dose: 100 mg Documented by: [id number] Ioversol (Optiray 320 125ml) 118 ml IV ONCE ONE Stop: 08/15/20 15:14 Last Admin: 08/15/20 15:13 Dose: 118 ml Documented by: [id number] Lisinopril (Lisinopril 20 Mg Tab) 20 mg PO [facility] Stop: 09/15/20 08:59 Last Admin: 08/16/20 10:33 Dose: 20 mg Documented by: [id number] Miscellaneous ((Linaclotide [Linzess] 145 Mcg)~Order Awaiting Action) 1 ea N/A QS [facility] Stop: 09/14/20 15:59 Last Admin: 08/16/20 09:03 Dose: Not Given Documented by: [id number] Admin: 08/15/20 22:47 Dose: Not Given Documented by: [id number] Admin: 08/15/20 16:44 Dose: Not Given Documented by: [id number] Pantoprazole Sodium (Pantoprazole 40 Mg Tab) [facility] [place] [facility]: 09/15/20 08:59 Last Admin: 08/16/20 10:33 Dose: 40 mg Documented by: [id number] Regadenoson (Regadenoson 0.4 Mg/5 Ml Syr) Confirm Administered Dose 0.4 mg IV .STK-MED ONE Stop: 08/16/20 08:25 Last Admin: 08/16/20 10:35 Dose: Not Given Documented by: [id number] Sotalol HCl (Sotalol Hcl 80 Mg Tab) 120 mg PO BID [facility] Stop: 09/14/20 20:59 Last Admin: 08/16/20 10:31 Dose: 120 mg Documented by: [id number] Admin: 08/15/20 20:10 Dose: 120 mg Documented by: [id number] Spironolactone (Spironolactone 12.5 Mg Tab) 12.5 mg PO QAM [facility] Stop: 09/15/20 08:59 Last Admin: 08/16/20 10:32 Dose: 12.5 mg Documented by: [id number] Tamsulosin HCl (Tamsulosin Hcl 0.4 Mg Cap) 0.4 mg PO QAM [facility] Stop: 09/15/20 08:59 Last Admin: 08/16/20 10:31 Dose: 0.4 mg Documented by: [id number] Terazosin HCl (Terazosin Hcl 5 Mg Cap) 5 mg PO PM [facility] Stop: 09/14/20 20:59 Last Admin: 08/15/20 20:09 Dose: 5 mg Documented by: [id number] Vitamin D (Cholecalciferol 1,000 Units 25 Mcg Tab) 5,000 units PO PM [facility] Stop: 09/14/20 20:59 Last Admin: 08/15/20 20:10 Dose: Not Given Documented by: [id number] Zolpidem Tartrate (Zolpidem Tartrate 10 Mg Tab) 10 mg PO HS [facility] Stop: 09/14/20 20:59 Last Admin: 08/15/20 21:53 Dose: 10 mg Documented by: [id number] Medical Decision Making Differential Diagnosis + fracture of rib, + pneumothorax, + stable angina, + unstable angina pectoris, + atypical chest pain, + st elevation myocardial infarction, + costochondritis, + chest pain, + biliary colic, + cardiac ischemia, + myocarditis, + pericarditis, + costochondritis, + pleurisy, + aortic dissection, + pulmonary embolism, + pneumonia and + musculoskeletal Medical Records Attestation: I reviewed the patient's medical records. Home Medications Current Medication List: was personally reviewed by me Laboratory Data Attestation: I reviewed the patient's lab results. Result diagrams: 08/15/20 11:28 08/16/20 05:29 Labs: Lab Results 08/15/20 08/15/20 08/15/20 Range/Units 11:28 11:28 11:28 WBC 5.38 (4.8-10.8) K/uL RBC 5.28 (4.7-6.1) M/uL Hgb 15.8 (14.0-18.0) g/dL Hct 45.6 (42-52) % MCV 86.4 (80-100) fL MCH 29.9 (25-34) pg MCHC 34.6 (32-36) g/dL RDW Std Deviation 43.8 (36.4-46.3) fL RDW Coeff of Malissa 13.9 (11.5-14.5) % Plt Count 203 (130-400) K/uL MPV 9.8 (7.4-10.4) fL Immature Gran % (Auto) 0.2 % Neut % (Auto) 66.3 % Lymph % (Auto) 20.3 % Elbert % (Auto) 9.7 % Eos % (Auto) 3.3 % Baso % (Auto) 0.2 % Neut # (Auto) 3.57 (1.4-6.5) K/uL Lymph # (Auto) 1.09 L (1.2-3.4) K/uL Elbert # (Auto) 0.52 (0.11-0.59) K/uL Eos # (Auto) 0.18 (0-0.5) K/uL Baso # (Auto) 0.01 (0-0.2) K/uL Immature Gran # (Auto) 0.01 (0.00-0.02) K/uL PT 10.9 (9.0-12.0) Seconds INR 1.0 (0.9-1.1) APTT 32.0 H (21.0-31.0) Seconds PTT Ratio 1.1 D-Dimer (0-500) ug/L FEU Sodium 140 (136-145) mmol/L Potassium 3.9 (3.5-5.1) mmol/L Chloride 105 (98-107) mmol/L Carbon Dioxide 27 (21-32) mmol/L Anion Gap 7.0 (3-11) BUN 16 (7-18) mg/dl Creatinine 0.96 (0.6-1.4) mg/dl Est Cr Clr Drug Dosing 92.0 ml/min Est GFR ( Amer) 95.8 Est GFR (Non-Af Amer) 82.6 BUN/Creatinine Ratio 16.5 (10-20) Glucose 83 (70-99) mg/dl Calcium 9.3 (8.5-10.1) mg/dl Total Bilirubin 0.5 (0.2-1) mg/dl AST 38 H (15-37) U/L ALT 111 H (12-78) U/L Alkaline Phosphatase 65 (45-117) U/L Total Creatine Kinase 60 (39-308) U/L CK-MB (CK-2) 1.0 (0.5-3.6) ng/ml CK/CKMB % Calc 1.7 (0-3.0) Troponin I < 0.015 (0-0.045) ng/ml Total Protein 8.0 (6.4-8.2) gm/dl Albumin 4.0 (3.4-5.0) gm/dl Globulin 4.0 (2.5-4.0) gm/dl Albumin/Globulin Ratio 1.0 (0.9-2) Lipase 70 L (73-393) U/L 08/15/20 Range/Units 11:28 WBC (4.8-10.8) K/uL RBC (4.7-6.1) M/uL Hgb (14.0-18.0) g/dL Hct (42-52) % MCV (80-100) fL MCH (25-34) pg MCHC (32-36) g/dL RDW Std Deviation (36.4-46.3) fL RDW Coeff of Malissa (11.5-14.5) % Plt Count (130-400) K/uL MPV (7.4-10.4) fL Immature Gran % (Auto) % Neut % (Auto) % Lymph % (Auto) % Elbert % (Auto) % Eos % (Auto) % Baso % (Auto) % Neut # (Auto) (1.4-6.5) K/uL Lymph # (Auto) (1.2-3.4) K/uL Elbert # (Auto) (0.11-0.59) K/uL Eos # (Auto) (0-0.5) K/uL Baso # (Auto) (0-0.2) K/uL Immature Gran # (Auto) (0.00-0.02) K/uL PT (9.0-12.0) Seconds INR (0.9-1.1) APTT (21.0-31.0) Seconds PTT Ratio D-Dimer 1150 H* (0-500) ug/L FEU Sodium (136-145) mmol/L Potassium (3.5-5.1) mmol/L Chloride (98-107) mmol/L Carbon Dioxide (21-32) mmol/L Anion Gap (3-11) BUN (7-18) mg/dl Creatinine (0.6-1.4) mg/dl Est Cr Clr Drug Dosing ml/min Est GFR ( Amer) Est GFR (Non-Af Amer) BUN/Creatinine Ratio (10-20) Glucose (70-99) mg/dl Calcium (8.5-10.1) mg/dl Total Bilirubin (0.2-1) mg/dl AST (15-37) U/L ALT (12-78) U/L Alkaline Phosphatase (45-117) U/L Total Creatine Kinase (39-308) U/L CK-MB (CK-2) (0.5-3.6) ng/ml CK/CKMB % Calc (0-3.0) Troponin I (0-0.045) ng/ml Total Protein (6.4-8.2) gm/dl Albumin (3.4-5.0) gm/dl Globulin (2.5-4.0) gm/dl Albumin/Globulin Ratio (0.9-2) Lipase (73-393) U/L Imaging Data Chest x-ray: Radiologist's impression: [place], [place] [phone] XRay Report Patient: MARIA LUISA BONE Admit Date: 08/15/20 MR#: [id number] Address1: [address] [place] [address] Acct ID:[id number] Address2: Date: 1955 [facility] Zip: [place] [address] Age: 64 Location: ED Sex: M Room/Bed: Att Phy: Diagnosis: CHEST PAIN Freda Phy: Mega Tyler,D.O. Service Date: 08/15/20 [facility] Phy: Interpreting Phy: Angel Valladares MD Admit Phy: Ordering Phy: Shantanu Palm MD cc: ~ SINGLE VIEW CHEST CLINICAL HISTORY: Atypical chest pain. FINDINGS: An AP, portable, upright chest radiograph is compared to study dated 12/30/2019 and correlated with chest CT dated 12/25/2019. The examination is degraded by portable technique and patient rotation. The heart is enlarged noting atherosclerotic calcification of the thoracic aorta. The pulmonary vasculature is noncongested. Emphysema and chronic interstitial thickening is similar to previous. There is bibasilar scarring/atelectasis. No airspace consolidation or large pleural effusion is identified. No pneumothorax is seen. The skeletal structures are osteopenic. The bony thorax is grossly intact. IMPRESSION: Cardiomegaly and emphysema with no acute cardiopulmonary abnormality. ACT 112: Negative or not required by law. Electronically signed by: Angel Valladares M.D. 08/15/2020 11:37 AM Dictated: 08/15/20 1136 Transcribed: 08/15/20 113 ECG Data Attestation: I personally reviewed and interpreted this ECG as follows: Indication: chest pain Rate (beats per minute): 65 Rhythm: normal sinus Findings: + Q waves (Septal); no ST depression and no ST elevation Comparison ECG Date: from (01/05/2020) Change: the following changes noted (New septal infarct) MDM Narrative Patient was seen and evaluated as above in room B3. Review was performed of nursing notes and vital signs. I did review pertinent previous visits and patient history. After obtaining a thorough history and physical examination the above work up was performed. This is a 64-year-old male who presents emergency department complaining of chest pain. The patient has a new septal infarct on his EKG. 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 I did discuss the case with the hospitalist service who did agree to admit the patient. Patient is in agreement with treatment plan. An order was placed for continuous cardiac monitoring. The monitor shows a rate of 60 with Normal Sinus rhythm. The patient was evaluated during the global COVID-19 pandemic, and that diagnosis was suspected/considered upon their initial presentation. Their evaluation, treatment and testing was consistent with current guidelines for patients who present with complaints or symptoms that may be related to COVID- 19. Impression & Plan Chest pain Discharge Plan Visit Data Chief Complaint: Chest Pain Stated Complaint: CHEST PAIN ED Provider: Shantanu Palm Discharge Problem: Chest pain Patient Disposition: Admitted As Inpatient Discharge Instructions Interventions: ED Discharge Assessment Last Done: 08/15/20 13:30 Discharge Problem: Chest pain Qualifiers: Chest pain type: unspecified Qualified Code(s): R07.9 - Chest pain, unspecified
--- NOTE | 2020-08-15 12:38 | History & Physical Report ---
Date of Service August 15, 2020 Assessment & Plan (1) Chest pain: Seems atypical in nature but has significant h/o CAD s/p ANTWON to PLB in 12/2019 and Aflutter/fib with WCT in the past. Trop initially is negative and pain constant for the last 4-5 days. COuld be angina vs MSK vs GI in nature. Not likely to be PE as no hypoxia and is fully anticoagulated on Eliquis, no calf pain or edema/evidence of DVT. -Admit to PCU on obs for tele monitoring -consult Cardio-considering stress test vs cath -will check D-dimer and if elevated, will pursue CTA chest to r/o PE -hold ELiquis in case of cath but if no cath planned then Cardiology will restart as per my discussion with Dr. Rivera -morphine as needed for pain -serial trop and daily ECG -NTG prn CP -lipid panel in AM-no longer on statin, has h/o side effects and may need alternative (2) CAD (coronary artery disease): as above -continue Plavix, holding Eliquis for now as above -not on statin as above, check lipids and may need Zetia or substitute -continue sotalol, lisinopril (3) Atrial flutter: in sinus currently tele monitoring continue sotalol Eliquis as above (4) GERD (gastroesophageal reflux disease): continue PPI, plan for EGD on Friday if cleared from cardiac standpoint (5) History of stroke: with right sided residual weakness, gait difficulty continue Plavix, not tolerant of statins as above (6) PAF (paroxysmal atrial fibrillation): as per Aflutter above (7) BPH (benign prostatic hyperplasia): no acute issues cont FLomax and also recently added terazosin for HTN (8) Fatty liver: with mildly elevated AST and ALT similar to previous follows with GI (9) Hyperlipidemia: as above (10) Hypertension: BPs elevated and with a h/o lability continue amlodipine, aldactone, lisinopril, terazosin (11) DVT prophylaxis: SCDs, Eliquis likely to get added back on if no cath planned NPO after midnight for stress Dispo-bring in to PCU for observation History of Present Illness Chief Complaint: Exertional chest pain Primary Care Provider: Mega Tyler, DO This patient is a 64-year-old male with a history of CAD status post stent of proximal right PLB 12/2019, HTN, atrial flutter on Eliquis, wide-complex tachycardia with syncope, hyperlipidemia, GERD, CVA, BPH, fatty liver, who presents to the ER at the 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 He reports left sided CP that is sometimes sharp in nature and constant but waxing at times with lying flat or going to the bathroom. He always has some SOB and no different with the chest pain. Always has chronic daily nausea and is set to have EGD this coming Friday for such. He has not taken anything to make the CP go away and it is nonradiating. It is a 2/10 all the time. Does not get worse with exertion. Sometimes it feels better if he pushes and holds in a spot near the left axilla. ECG here without acute ischemic changes and initial troponin was negative. All other labs also normal. Chest xray neg for acute. He was seen acutely at Cardiology w/ Dr. Holden who recommended expedited workup through observation at hospital for serial troponin, and possible stress test vs cath despite the somewhat atypical nature of the pain. This is in light of upcoming EGD and need to hold Plavix and Eliquis for the procedure and undergoing sedation. Allergies Allergy/AdvReac Type Severity Reaction Status Date / Time No Known Allergies Allergy Verified 08/15/20 12:18 Home Medications Home Medications Medication Instructions Recorded Confirmed Type tamsulosin 0.4 mg PO QAM 11/26/18 08/15/20 History zolpidem [Ambien] 10 mg PO HS 11/26/18 08/15/20 History cholecalciferol (vitamin D3) 5,000 unit PO PM 02/09/19 08/15/20 History [Vitamin D3] Eliquis 5 mg PO BID #60 tab 12/27/19 08/15/20 Rx clopidogrel 75 mg PO QAM #30 tab 01/05/20 08/15/20 Rx sotalol 120 mg PO BID #60 tab 01/05/20 08/15/20 Rx amlodipine [Norvasc] 5 mg PO PM 08/15/20 08/15/20 History esomeprazole magnesium [Nexium] 40 mg PO QAM 08/15/20 08/15/20 History linaclotide [Linzess] 145 mcg PO DAILY 08/15/20 08/15/20 History lisinopril 20 mg PO QAM 08/15/20 08/15/20 History spironolactone 12.5 mg PO QAM 08/15/20 08/15/20 History terazosin 2 mg PO PM 08/15/20 08/15/20 History Past Med/Surg History Medical History Anticoagulated Atrial fibrillation with RVR Atrial flutter with RVR on zio patch-so far in the past hour has not had any further episodes; continue metoprolol post PCI if recurrent episodes then start sotalol and consider tripple anti-coagulation BPH (benign prostatic hyperplasia) CAD (coronary artery disease) s/p cardiac cath got PCI to right PDA. Hopefully this will resolve all the arrhythmia he has been having Diverticulitis Fatty liver GERD (gastroesophageal reflux disease) Hyperlipidemia Hypertension Hypokalemia Insomnia Osteoarthritis PAF (paroxysmal atrial fibrillation) Stroke 10 YEARS AGO (REASON FOR ASA) Syncope due to arrhythmias with RVR-hopefully resolved with PCI Wide-complex tachycardia Surgical History History of bowel resection WITH COLOSTOMY AND REVERSAL [place] of [place] [facility] [place]oscopy History of colostomy reversal History of esophagogastroduodenoscopy (EGD) History of herniorrhaphy Hx of LASIK Family History Father No problems noted. Other No pertinent family history Social History Smoking Status: Former smoker Cigarettes Per Day: 10 YEARS AGO; Second Hand Exposure: No; Hx Alcohol Use: No Hx Substance Use: No Preferred Language: Finnish Communication Ability: Effective Sports Photographer Required: No Beliefs That Will Affect Care: None marital status: Current Living Situation: Spouse Other Information That Helps Us Care for You: No Feels Safe at Home: Yes Safety Concerns: Feels Safe At This Time Assistive Devices: None Review of Systems Review of Systems: All systems reviewed & are unremarkable except as noted in HPI & below No fevers or lightheadedness, has chronic SOB, no cough, +heartburn and chronic nausea, +chronic constipation. No trouble urinating. No blood in stool, no vomiting Physical Exam Constitutional: WD/WN, vitals as above Eyes: PERRL, conjunctivae normal, anicteric sclerae Neck: trachea midline, no thyromegaly Respiratory: normal respiratory effort, lungs clear to auscultation Cardiovascular: RRR, no murmur, no edema Extremities: no calf tenderness Chest (Breasts): Chest: normal inspection of chest (no TTP over left chest wall or sternum) Gastrointestinal (Abdomen): normal bowel sounds, soft, nontender, no hepatosplenomegaly Musculoskeletal: Extremities: extremities normal to inspection; no cyanosis and no clubbing Skin: no rashes, warm and dry Neurologic: moves all extremities and awake; no focal motor deficits Psychiatric: Orientation: alert, oriented x 3 and cooperative Affect: + irritable affect Lymphatic: no lymphedema Results & Data Results & Data ([facility]) Vital Signs (Past 12 Hours) Vital Signs Temp Pulse Pulse Resp BP BP Pulse Ox 08/15/20 11:51 64 24 160/101 H 97 08/15/20 11:50 96 08/15/20 11:12 36.5 C 71 18 196/96 H 97 Laboratory Results 08/15/20 08/15/20 08/15/20 Range/Units 11:28 11:28 11:28 WBC 5.38 (4.8-10.8) K/uL RBC 5.28 (4.7-6.1) M/uL Hgb 15.8 (14.0-18.0) g/dL Hct 45.6 (42-52) % MCV 86.4 (80-100) fL MCH 29.9 (25-34) pg MCHC 34.6 (32-36) g/dL RDW Std Deviation 43.8 (36.4-46.3) fL RDW Coeff of Malissa 13.9 (11.5-14.5) % Plt Count 203 (130-400) K/uL MPV 9.8 (7.4-10.4) fL Immature Gran % (Auto) 0.2 % Neut % (Auto) 66.3 % Lymph % (Auto) 20.3 % Cross % (Auto) 9.7 % Eos % (Auto) 3.3 % Baso % (Auto) 0.2 % Neut # (Auto) 3.57 (1.4-6.5) K/uL Lymph # (Auto) 1.09 L (1.2-3.4) K/uL Cross # (Auto) 0.52 (0.11-0.59) K/uL Eos # (Auto) 0.18 (0-0.5) K/uL Baso # (Auto) 0.01 (0-0.2) K/uL Immature Gran # (Auto) 0.01 (0.00-0.02) K/uL PT 10.9 (9.0-12.0) Seconds INR 1.0 (0.9-1.1) APTT 32.0 H (21.0-31.0) Seconds PTT Ratio 1.1 Sodium 140 (136-145) mmol/L Potassium 3.9 (3.5-5.1) mmol/L Chloride 105 (98-107) mmol/L Carbon Dioxide 27 (21-32) mmol/L Anion Gap 7.0 (3-11) BUN 16 (7-18) mg/dl Creatinine 0.96 (0.6-1.4) mg/dl Est Cr Clr Drug Dosing 92.0 ml/min Est GFR ( Amer) 95.8 Est GFR (Non-Af Amer) 82.6 BUN/Creatinine Ratio 16.5 (10-20) Glucose 83 (70-99) mg/dl Calcium 9.3 (8.5-10.1) mg/dl Total Bilirubin 0.5 (0.2-1) mg/dl AST 38 H (15-37) U/L ALT 111 H (12-78) U/L Alkaline Phosphatase 65 (45-117) U/L Total Creatine Kinase 60 (39-308) U/L CK-MB (CK-2) 1.0 (0.5-3.6) ng/ml CK/CKMB % Calc 1.7 (0-3.0) Troponin I < 0.015 (0-0.045) ng/ml Total Protein 8.0 (6.4-8.2) gm/dl Albumin 4.0 (3.4-5.0) gm/dl Globulin 4.0 (2.5-4.0) gm/dl Albumin/Globulin Ratio 1.0 (0.9-2) Lipase 70 L (73-393) U/L Diagnostic Findings Chest x-ray image personally reviewed by me and agree with the following report: SINGLE VIEW CHEST CLINICAL HISTORY: Atypical chest pain. FINDINGS: An AP, portable, upright chest radiograph is compared to study dated 12/30/2019 and correlated with chest CT dated 12/25/2019. The examination is degraded by portable technique and patient rotation. The heart is enlarged noting atherosclerotic calcification of the thoracic aorta. The pulmonary vasculature is noncongested. Emphysema and chronic interstitial thickening is similar to previous. There is bibasilar scarring/atelectasis. No airspace consolidation or large pleural effusion is identified. No pneumothorax is seen. The skeletal structures are osteopenic. The bony thorax is grossly intact. IMPRESSION: Cardiomegaly and emphysema with no acute cardiopulmonary ab normality. ECG Additional Comments: ECG on 08/15/2020 1122 with normal sinus rhythm, rate 65, minimal voltage criteria for LVH, and new septal infarct compared to previous Code Status & VTE Plan Code Status Full COde VTE Prophylaxis Plan VTE Prophylaxis will be ordered: Yes PG Care Time/CCT Total # of Minutes Spent Total Time Spent with Patient: Total time spent is greater than 50% in coordination of care (as documented) at patient's floor/unit and/or counseling patient: Coding Level of Care Code 39242 OBS Care - Level 3 Diagnoses Chest pain R07.9 Chest pain type: unspecified CAD (coronary artery disease) I25.10 Associated angina: without angina Coronary Disease-Associated Artery/Lesion type: marshall artery [place] vs. transplanted heart: marshall heart Atrial flutter I48.3 Atrial flutter type: typical GERD (gastroesophageal reflux disease) K21.9 Esophagitis presence: without esophagitis History of stroke Z86.73 PAF (paroxysmal atrial fibrillation) I48.0 BPH (benign prostatic hyperplasia) N40.0 Lower urinary tract symptom presence: symptoms absent Fatty liver K76.0 Hyperlipidemia E78.5 Hypertension I10 DVT prophylaxis Z29.9 (1) BPH (benign prostatic hyperplasia) Lower urinary tract symptom presence: symptoms absent Qualified Code(s): N40.0 - Benign prostatic hyperplasia without lower urinary tract symptoms (2) CAD (coronary artery disease) Associated angina: without angina Coronary Disease-Associated Artery/Lesion type: marshall artery [place] vs. transplanted heart: marshall heart Qualified Code(s): I25.10 - Atherosclerotic heart disease of marshall coronary artery without angina pectoris (3) Atrial flutter Atrial flutter type: typical Qualified Code(s): I48.3 - Typical atrial flutter (4) GERD (gastroesophageal reflux disease) Esophagitis presence: without esophagitis Qualified Code(s): K21.9 - Gastro- esophageal reflux disease without esophagitis (5) Chest pain Chest pain type: unspecified Qualified Code(s): R07.9 - Chest pain, unspecified
[2020-08-15] MEDS ORDERED: POLYETHYLENE (MIRALAX) 17 GM PACK PO PRN (14:08)
[2020-08-15] MEDS ORDERED: MoRPHine SULFATE 2 MG/ML CARP IV PRN (14:08)
[2020-08-15] MEDS ORDERED: ACETAMINOPHEN 325 MG TAB PO PRN (14:08)
[2020-08-15] MEDS ORDERED: NITROGLYCERIN SL 0.4 MG/TAB TAB SL PRN (14:08)
[2020-08-15] MEDS ORDERED: ONDANSETRON INJ 2 MG/ML 2 ML VIAL IV PRN (14:08)
--- NOTE | 2020-08-15 14:09 | Cardiology Consultation ---
Date of Consultation August 15, 2020 Assessment & Plan (1) Chest pain: Patient presents now with left pectoral chest discomfort with atypical features. Initial evaluation reveals no acute ischemia by EKG and cardiac enzymes despite extended duration of chest discomfort of several days continuous pain. Plan: Echocardiogram be ordered given variation in EKGs exclude pericardial effusion. Serial cardiac enzymes ordered continue usual medications holding Eliquis pending evaluation with anticipated Lexiscan stress nuclear imaging in a.m. We will treat hypertension. Patient has responded favorably the addition of terazosin to regimen will increase to 5 mg q. evening If stress test abnormal or cardiac enzymes evolve would consider repeat diagnostic cardiac catheterization Patient anxious to complete upcoming GI evaluation (2) CAD (coronary artery disease): (3) PAF (paroxysmal atrial fibrillation): (4) Hypertension: History of Present Illness Reason for Consultation: Atypical chest pain Requesting Physician: Dr. Alvarenga Attending Physician: Charleen Alvarenga MD History of Present Illness Patient is a 64-year-old male with complex constellation of ongoing cardiac issues which include 1. Atherosclerotic coronary disease , single-vessel 90% right posterior lateral branch status post drug-eluting stent December 31, 2019 for single-vessel coronary artery disease 2. Paroxysmal atrial fibrillation on antiarrhythmic therapy with sotalol 3. Wide complex tachycardia/SVT with aberrancy with syncope 4. Longstanding Hypertension with labile blood pressures 5. Brainstem right pontis stroke in 2009 the setting of hypertensive urgency with mild residual right hemiparesis 6. Hyperlipidemia Patient presents now after ER referral from outpatient clinic with symptoms of chest pain somewhat atypical for angina. He notes approximately 4-day history of continuous discomfort grade 2/10. Symptoms are located between the left pectoral and left axillary areas. Notes no specific worsening with physical exertion. Notes no tachypalpitations syncope or near syncope notes no orthopnea or worsening peripheral edema. Notes no fevers chills unexplained infections. Continues to have GI symptoms with anticipated evaluation this upcoming week. Due to plans to hold antiplatelet therapy and anticoagulant for endoscopy procedure he was referred for ongoing acute evaluation of chest pain. Initial EKGs without acute ischemic changes. Troponin negative for injury. Blood pressures have been somewhat labile though that improved on recent increase in medical therapies. He denies fevers chills unexplained infections. Notes no cough hoarseness wheeze or hemoptysis. Notes no worsening shortness of breath. Appetite and weight have been generally stable. No worsening edema Allergies Allergy/AdvReac Type Severity Reaction Status Date / Time No Known Allergies Allergy Verified 08/15/20 12:18 Home Medications Home Medications Medication Instructions Recorded Confirmed Type tamsulosin 0.4 mg PO QAM 11/26/18 08/15/20 History zolpidem [Ambien] 10 mg PO HS 11/26/18 08/15/20 History cholecalciferol (vitamin D3) 5,000 unit PO PM 02/09/19 08/15/20 History [Vitamin D3] Eliquis 5 mg PO BID #60 tab 12/27/19 08/15/20 Rx clopidogrel 75 mg PO QAM #30 tab 01/05/20 08/15/20 Rx sotalol 120 mg PO BID #60 tab 01/05/20 08/15/20 Rx amlodipine [Norvasc] 5 mg PO PM 08/15/20 08/15/20 History esomeprazole magnesium [Nexium] 40 mg PO QAM 08/15/20 08/15/20 History linaclotide [Linzess] 145 mcg PO DAILY 08/15/20 08/15/20 History lisinopril 20 mg PO QAM 08/15/20 08/15/20 History spironolactone 12.5 mg PO QAM 08/15/20 08/15/20 History terazosin 2 mg PO PM 08/15/20 08/15/20 History Patient History Medical History Anticoagulated Atrial fibrillation with RVR Atrial flutter with RVR on zio patch-so far in the past hour has not had any further episodes; continue metoprolol post PCI if recurrent episodes then start sotalol and consider tripple anti-coagulation BPH (benign prostatic hyperplasia) CAD (coronary artery disease) s/p cardiac cath got PCI to right PDA. Hopefully this will resolve all the arrhythmia he has been having Diverticulitis Fatty liver GERD (gastroesophageal reflux disease) Hyperlipidemia Hypertension Hypokalemia Insomnia Osteoarthritis PAF (paroxysmal atrial fibrillation) Stroke 10 YEARS AGO (REASON FOR ASA) Syncope due to arrhythmias with RVR-hopefully resolved with PCI Wide-complex tachycardia Surgical History History of bowel resection WITH COLOSTOMY AND REVERSAL History of cataract surgery 02/16/2019 [facility] [place] History of colonoscopy History of colostomy reversal History of esophagogastroduodenoscopy (EGD) History of herniorrhaphy Hx of LASIK Family History Father No problems noted. 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 Required: No Beliefs That Will Affect Care: None marital status: Current Living Situation: Spouse Other Information That Helps Us Care for You: No Feels Safe at Home: Yes Safety Concerns: Feels Safe At This Time Assistive Devices: None Physical Exam Constitutional: WD/WN, vitals as above Eyes: PERRL, conjunctivae normal, anicteric sclerae ENMT: external ear and nose normal, oropharynx normal Neck: trachea midline, no thyromegaly Respiratory: normal respiratory effort, lungs clear to auscultation Cardiovascular: Rate/Rhythm: regular rate and regular rhythm Heart Sounds: normal S1 and normal S2; no gallop and no murmur Palpation: normal PMI Vessels: normal carotid upstroke and radial pulses present; no JVD and no carotid bruit Extremities: no edema Chest (Breasts): Additional Comments: Mild tenderness left chest Gastrointestinal (Abdomen): normal bowel sounds, soft, nontender, no hepatosplenomegaly Musculoskeletal: no cyanosis or clubbing, extremities motor strength 5/5 Skin: no rashes, warm and dry Neurologic: PERRL, EOMI, accommodation nl, no face palsy, no dysarthria Psychiatric: A+Ox3, euthymic affect Results & Data ([facility]) Vital Signs (Past 12 Hours) Vital Signs Temp Pulse Pulse Resp BP BP Pulse Ox 08/15/20 13:07 64 20 166/96 H 96 08/15/20 12:30 63 16 171/85 H 95 08/15/20 12:00 61 19 167/95 H 95 08/15/20 11:51 64 24 160/101 H 97 08/15/20 11:50 96 08/15/20 11:49 62 15 160/101 H 96 08/15/20 11:12 36.5 C 71 18 196/96 H 97 Laboratory Results Laboratory Results - last 24 hr 08/15/20 08/15/20 08/15/20 11:28 11:28 11:28 WBC 5.38 RBC 5.28 Hgb 15.8 Hct 45.6 MCV 86.4 MCH 29.9 MCHC 34.6 RDW Std Deviation 43.8 RDW Coeff of Amlissa 13.9 Plt Count 203 MPV 9.8 Immature Gran % (Auto) 0.2 Neut % (Auto) 66.3 Lymph % (Auto) 20.3 [place] % (Auto) 9.7 Eos % (Auto) 3.3 Baso % (Auto) 0.2 Neut # (Auto) 3.57 Lymph # (Auto) 1.09 L [place] # (Auto) 0.52 Eos # (Auto) 0.18 Baso # (Auto) 0.01 Immature Gran # (Auto) 0.01 PT 10.9 INR 1.0 APTT 32.0 H PTT Ratio 1.1 Sodium 140 Potassium 3.9 Chloride 105 Carbon Dioxide 27 Anion Gap 7.0 BUN 16 Creatinine 0.96 Est Cr Clr Drug Dosing 92.0 Est GFR ( Amer) 95.8 Est GFR (Non-Af Amer) 82.6 BUN/Creatinine Ratio 16.5 Glucose 83 Calcium 9.3 Total Bilirubin 0.5 AST 38 H ALT 111 H Alkaline Phosphatase 65 Total Creatine Kinase 60 CK-MB (CK-2) 1.0 CK/CKMB % Calc 1.7 Troponin I < 0.015 Total Protein 8.0 Albumin 4.0 Globulin 4.0 Albumin/Globulin Ratio 1.0 Lipase 70 L (1) Chest pain Chest pain type: unspecified Qualified Code(s): R07.9 - Chest pain, unspecified (2) CAD (coronary artery disease) Coronary Disease-Associated Artery/Lesion type: [place] artery [place] vs. transplanted heart: [place] heart Associated angina: without angina Qualified Code(s): I25.10 - Atherosclerotic heart disease of [place] coronary artery without angina pectoris
[2020-08-15 14:38] LABS: D Dimer 1150 ug/L FEU (0-500)
[2020-08-15] MEDS ORDERED: OPTIRAY 320 125ml IV ONE (15:13)
--- NOTE | 2020-08-15 15:25 | CT Scan Report ---
CT ANGIOGRAM OF THE CHEST CLINICAL HISTORY: Atypical chest pain. Possible pulmonary embolism. COMPARISON STUDY: 12/25/2019 TECHNIQUE: Following the IV administration of 118 mL of [id number]-[id number], CT angiogram of the thorax was p erformed from the thoracic inlet to the lung bases utilizing the pulmonary embolus protocol. Images a re reviewed in the axial, sagittal, and coronal planes. IV contrast was administered without complica tion. MIP imaging was performed. A dose lowering technique was utilized adhering to the principles o f ALARA. CT DOSE: 678.45 mGy.cm FINDINGS: There is hepatic steatosis. No pathologically enlarged axillary mediastinal or hilar lymph nodes were visualized. The ascending thoracic aorta measures 37 mm. There were no pulmonary artery filling defects to indicate acute pulmonary embolism. No pleural effusions are visualized. There are tiny left lower lobe and left upper lobe perifissural nodules of doubtful clinical signific ance. There is a 19 mm right lower lobe lung cyst. There are mild dependent atelectatic changes. There are no areas of parenchymal consolidation to indicate a pneumonia. There is mild emphysema. IMPRESSION: 1. No evidence of acute pulmonary embolism 2. No evidence of focal pulmonary consolidation 3. Mild emphysema ACT 112: Negative or not required by law. Electronically signed by: Mark Neumann M.D. 08/15/2020 3:24 PM
[2020-08-15] MEDS: SOTALOL HCL 80 MG TAB PO SCH (20:10)
[2020-08-15] MEDS ORDERED: TERAZOSIN HCL 5 MG CAP PO SCH (21:00)
[2020-08-15] MEDS ORDERED: ENOXAPARIN 100 MG/1ML SYR SQ ONE (21:00)
[2020-08-15] MEDS ORDERED: TERAZOSIN HCL 1 MG CAP PO SCH (21:00)
[2020-08-15] MEDS ORDERED: AMLODIPINE BESYLATE 5 MG TAB PO SCH (21:00)
[2020-08-15] MEDS ORDERED: ZOLPIDEM TARTRATE 10 MG TAB PO SCH (21:00)
[2020-08-15] MEDS ORDERED: CHOLECALCIFEROL 1,000 UNITS 25 MCG TAB PO SCH (21:00)
[2020-08-16] MEDS ORDERED: HydrALAZINE HCL 20 MG/ML VIAL IV PRN (05:11)
[2020-08-16 06:30] LABS: BUN Creatinine Ratio 18.5 (10-20); Calcium 9.1 mg/dl (8.5-10.1); Creatinine Clr Calc Pharmacy 100.4 ml/min; Est GFR (African American) 104.5; Est GFR (Non-African American) 90.1; Magnesium 1.9 mg/dl (1.8-2.4); Potassium 3.5 mmol/L (3.5-5.1)
[2020-08-16] MEDS ORDERED: REGADENOSON 0.4 MG/5 ML SYR IV ONE (08:24)
[2020-08-16] MEDS ORDERED: CLOPIDOGREL BISULFATE 75 MG TAB PO SCH (09:00)
[2020-08-16] MEDS ORDERED: PANTOprazole 40 MG TAB PO SCH (09:00)
[2020-08-16] MEDS ORDERED: TAMSULOSIN HCL 0.4 MG CAP PO SCH (09:00)
[2020-08-16] MEDS ORDERED: lisinopriL 20 MG TAB PO SCH (09:00)
[2020-08-16] MEDS ORDERED: SPIRONOLACTONE 12.5 MG TAB PO SCH (09:00)
--- NOTE | 2020-08-16 10:22 | Myocardial Perfusion Study ---
Date of Service August 16, 2020 Myocardial Perfusion Study k Myocardial Perfusion Study Report [place] Act 112: Negative Procedure: 1. Myocardial perfusion study performed in multiple views/images 2. Lexiscan pharmacologic stress ECG Indications: 1. [ Atypical chest discomfort with history of PCI to circumflex branch vessel.] Ordering physician: Procedural details: For the stress portion of the study, Lexiscan 0.4 mg was intravenously administered followed by a saline flush. This was followed by 33.2 mCi of technetium 99m Cardiolite, injected at 0916 on 08/16/2020. 30 minutes following the injection, imaging of the heart was performed in multiple projections. For the rest portion of the study, 11 mCi technetium 99m Cardiolite was injected intravenously at 0730 on 08/16/2020. 1 hour following the injection, imaging of the heart was performed in the same projections. Lexiscan stress ECG: Resting ECG demonstrated: Normal sinus rhythm with septal infarct Maximum heart rate: 106 bpm Maximal, age-predicted heart rate: % Resting blood pressure: 178/92 mmHg Maximum blood pressure: 178/[address] changes: None Arrhythmia: None Symptoms: Significant nausea and lightheadedness with Lexiscan injection, resolved with caffeinated soft drink Findings: Rotating raw imaging demonstrated no significant lung uptake. There is no significant motion artifact. Heart size appeared normal. Myocardial perfusion demonstrated homogeneous myocardial uptake on rest and stress images. Ejection fraction: 54% Wall motion: Normal No significant transient ischemic dilation. Impression: 1. Nonischemic Lexiscan nuclear stress test. Normal LV systolic function without regional wall motion abnormality. Ejection fraction calculated be 54%
--- NOTE | 2020-08-16 10:22 | Cardiology Progress Note ---
Date of Service August 16, 2020 Assessment & Plan (1) Chest pain: Patient presents now with left pectoral chest discomfort with atypical features. Initial evaluation reveals no acute ischemia by EKG and cardiac enzymes despite extended duration of chest discomfort of several days continuous pain. Nuclear stress test was nonischemic with normal perfusion. Okay to discharge from a cardiac standpoint. In regards to his upcoming colonoscopy scheduled on the I would place him as a moderate risk for any adverse perioperative cardiovascular event with his wrist being approximately less than 5%. No further cardiac testing or intervention would further lower that risk. He states he understands, he is accepting of this risk and wishes to proceed with a colonoscopy. No cardiac contraindication to proceeding. (2) CAD (coronary artery disease): (3) PAF (paroxysmal atrial fibrillation): (4) Hypertension: Admission and Anticipated Discharge Date Admission Date: August 15, 2020 Subjective Patient seen and examined, chart reviewed. States he is feeling well still with reproducible left axillary discomfort otherwise feeling well. No events overnight. Denies any shortness of breath, palpitations, lightheadedness, dizziness or syncope. Telemetry reviewed: Normal sinus rhythm without arrhythmia or significant ectopy. Review of Systems Review of Systems: All systems reviewed & are unremarkable except as noted in HPI & below Physical Exam Physical Exam: General: Awake, alert and oriented x 3. No acute distress. HEENT: Normocephalic, atraumatic. Pupils equal, round and reactive to light and accommodation. Extraocular muscles are intact. Anicteric sclera. Moist mucous membranes. Neck: No JVD. No bruit. Cardiovascular: Regular. Positive S-4. Normal S-1 and S-2. No S-3. No murmurs or rubs. Pulmonary: Clear to auscultation B/L. No rales, rhonchi or wheezing Abdomen: Bowel sounds x 4, soft. No rebound, guarding or tenderness. No organomegaly. Extremities: No clubbing, cyanosis or edema. +2 pedal pulses bilaterally. Skin: Warm and dry. Results & Data ([facility]) Vital Signs (Past 12 Hours) Vital Signs Temp Pulse Pulse Pulse Resp BP Pulse Ox 08/16/20 08:00 62 08/16/20 05:36 80 161/93 H 08/16/20 03:45 36.4 C L 59 L 16 179/84 H 95 08/15/20 23:31 36.4 C L 65 16 169/87 H 95 (1) CAD (coronary artery disease) Associated angina: without angina Coronary Disease-Associated Artery/Lesion type: sun'aq artery [place] vs. transplanted heart: sun'aq heart Qualified Code(s): I25.10 - Atherosclerotic heart disease of sun'aq coronary artery without angina pectoris (2) Chest pain Chest pain type: unspecified Qualified Code(s): R07.9 - Chest pain, unspecified
[2020-08-16] MEDS: SOTALOL HCL 80 MG TAB PO SCH (10:31)
[2020-08-16 11:51] LABS: Hepatitis B Surface Ab Quant < 3.10 mIU/mL (>or=10mIU/mL Immune); Hepatitis B Surface Antibody Non-Immune
[2020-08-16 12:02] LABS: Hepatitis B Surface Antigen Neg (Neg)
--- NOTE | 2020-08-16 13:25 | Ultrasound Report ---
US liver CLINICAL HISTORY: transaminitis, h/o steatosis COMPARISON STUDY: CT scan dated 12/30/2019 FINDINGS: The liver is of increased echogenicity, consistent with hepatic steatosis. No focal masses are visual ized. There is focal fatty sparing adjacent to the gallbladder fossa. There is no right-sided hydronephrosis. There is no ductal dilatation. There is a nonshadowing 3 mm echogenic focus within the gallbladder. This did not move. Diagnostic co nsiderations include a tiny nonshadowing adherent calculus versus gallbladder polyp. Also present is a small amount of sludge within the gallbladder. The pancreas is not well-visualized. No definite pancreatic abnormalities are visualized IMPRESSION: 1. Small amount of sludge within the gallbladder 2. 3 mm nonshadowing calculus versus gallbladder polyp 3. Hepatic steatosis 4. No ductal dilatation ACT 112: Negative or not required by law. Electronically signed by: Mark Neumann M.D. 08/16/2020 1:24 PM
--- NOTE | 2020-08-16 14:15 | Electrocardiogram Report ---
Test Reason : Blood Pressure : / mmHG Vent. Rate : 065 BPM Atrial Rate : 065 BPM P-R Int : 152 ms QRS Dur : 094 ms QT Int : 416 ms P-R-T Axes : -04 -18 005 degrees QTc Int : 432 ms Normal sinus rhythm Minimal voltage criteria for LVH, may be normal variant Septal infarct , age undetermined Abnormal ECG When compared with ECG of 05-JAN-2020 06:53, Septal infarct is now Present Confirmed by Obdulio Rodríguez ([id number]) on 08/16/2020 2:15:06 PM Referred By: REFERRED SELF Confirmed By:Obdulio Rodríguez
--- NOTE | 2020-08-16 18:39 | Discharge Summary ---
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 He reports left sided CP that is sometimes sharp in nature and constant but waxing at times with lying flat or going to the bathroom. He always has some SOB and no different with the chest pain. Always has chronic daily nausea and is set to have EGD this coming Friday for such. He has not taken anything to make the CP go away and it is nonradiating. It is a 2/10 all the time. Does not get worse with exertion. Sometimes it feels better if he pushes and holds in a spot near the left axilla. ECG here without acute ischemic changes and initial troponin was negative. All other labs also normal. Chest xray neg for acute. He was seen acutely at Cardiology w/ Dr. Holden who recommended expedited workup through observation at hospital for serial troponin, and possible stress test vs cath despite the somewhat atypical nature of the pain. This is in light of upcoming EGD and need to hold Plavix and Eliquis for the procedure and undergoing sedation. Admission Exam Per Admitting Provider Constitutional: WD/WN, vitals as above Eyes: PERRL, conjunctivae normal, anicteric sclerae Neck: trachea midline, no thyromegaly Respiratory: normal respiratory effort, lungs clear to auscultation Cardiovascular: RRR, no murmur, no edema Extremities: no calf tenderness Chest (Breasts): Chest: normal inspection of chest (no TTP over left chest wall or sternum) Gastrointestinal (Abdomen): normal bowel sounds, soft, nontender, no hepatosplenomegaly Musculoskeletal: Extremities: extremities normal to inspection; no cyanosis and no clubbing Skin: no rashes, warm and dry Neurologic: moves all extremities and awake; no focal motor deficits Psychiatric: Orientation: alert, oriented x 3 and cooperative Affect: + irritable affect Lymphatic: no lymphedema Principal Diagnosis Noncardiac chest pain Discharge Exam Constitutional Well-appearing 64-year-old male who is lying back in his hospital bed with his at his side. Converses in full sentences without any difficulty. No acute distress Respiratory Good respiratory effort with symmetric expansion of the chest. Lungs are clear to auscultation bilaterally without any crackles or wheezes. Cardiovascular Normal rate and regular rhythm. S1 and S2 are present without any murmurs rubs or gallops. Gastrointestinal (Abdomen) Soft, nontender, nondistended to palpation. Musculoskeletal Visualization and gentle palpation across the superficial aspect of the precord ium and in the area just below the left acromion and into the axilla did not reveal any structural abnormalities or lesions. Nontender to palpation. Psychiatric Orientation: alert and oriented x 3 Affect: + irritable affect Discharge Data Allergies Allergy/AdvReac Type Severity Reaction Status Date / Time No Known Allergies Allergy Verified 08/15/20 12:18 Consultations 08/15/20 11:21 Consult Cardiology Stat 08/15/20 12:07 ED Decision to Admit Stat Ordered Studies 08/15/20 14:42 CT angio chest PE protocol Stat 08/16/20 13:00 US liver Routine Hospital Course (1) Chest pain: Neal Chavez is a 64-year-old gentleman with a notable past medical history of CAD s/p stent placement in 12/2019, HTN, atrial flutter on Eliquis, HLD, GERD, CVA approx. 10 years ago, BPH, hepatitis C s/p antiviral treatment, and NAFLD who presented to the [facility] ED on 08/15 at the recommendation of his railroad brake repairer for evaluation of new-onset, continuous left-sided chest pain x 4-5 days. Remained hemodynamically stable throughout admission. Chest Pain: - Intermittent, episodic, positionally-relieved left sided/axillary chest pain x 4-5 days that is continuous, occasionally "sharp" in character, feels better with palpation, but has no relation to exertion or worsening in his baseline dyspnea. No h/o trauma. - Remained present and reproducible in the left axillary area throughout this short admission - 2/10 pain at baseline - Given his extensive cardiac placement involving CAD s/p stenting, there was initial concern for a cardiac etiology to this atypical chest pain: - EKG in the ED did not demonstrate any acute pathology suggestive of new ischemia - Troponin trend was negative throughout following his admission - Cardiology was consulted and followed through admission + placed on Med/Surg with telemetry - Echocardiogram performed morning after admission not significant for acute pathology: EF 60-65%, grade I diastolic dysfunction, and moderate LVH -- but normal LV function - Nuclear Stress Test performed day after admission: nonischemic with normal perfusion - Given an elevated D-Dimer (1150) discovered on admission alongside this new chest pain, a CT-A of the Chest was performed which did NOT show evidence of PE - LFTs were also slightly from previous in the ED -- given h/o HCV (s/p antiviral treatment) and NAFLD, alongside elevated D-dimer, underwent liver US and hepatitis panel to r/o GI-related cause -- no acute pathology - Liver US did demonstrate 3mm calculus vs. polyp in the gallbladder, alongside hepatic steatosis - Patient reported long standing history with reflux/GERD symptoms, but no recent changes -- while possibly contributory to general discomfort, unlikely primary etiology based on description of symptoms, physical exam - Given negative work-up for cardiac, pulmonary, and GI-related causes, etiology of this atypical chest pain remains unclear. May represent MSK-related etiology, such as costochondritis - Advised for close follow-up with PCP for continued monitoring of symptoms CAD - The following were continued during his stay: Plavix (s/p stent), sotalol, lisinopril - Patient has not been tolerant of statins in the past and, as such, does not take one Atrial Flutter - Remained in NSR throughout his stay - Continued sotalol - Eliquis was held during stay in lieu of possible catheterization (not performed) -- resume at d/c GERD - Continue PPI - EGD scheduled for Friday - Cardiology deemed "moderate risk" for perioperative cardiovascular event (<5%) given cardiac history -- cleared to proceed with EGD Chronic Medical Problems - BPH: continued flomax, terazosin - NAFLD: Follows with GI -- hepatitis panel negative, liver US as above - HLD: as above - HTN: Continued amlodipine, aldactone, lisinopril, terazosin (2) PAF (paroxysmal atrial fibrillation): (3) Wide-complex tachycardia: (4) CAD (coronary artery disease): (5) Atrial flutter: (6) GERD (gastroesophageal reflux disease): (7) History of stroke: (8) Fatty liver: (9) Stroke: (10) Hyperlipidemia: (11) Hypertension: Total Time Total Time Spent Total Time Spent (In Minutes): 1 night Total Time Includes: Examination of the Patient, Discharge Planning, Medication Reconciliation, Communication With Other Providers and Other Discharge Plan Discharge Items Patient Disposition: Home - Self-Care Reason For Visit: CHEST PAIN Discharge Diagnosis: Noncardiac Chest Pain Activity: Resume your previous activity Non-emergency contact: Primary Care Provider Call non-emergency contact if: you have any medication questions, your symptoms worsen, your pain is not controlled, your pain is worsening and your pain is unusual for you Follow-up/Referrals: Mega Tyler DO [Primary Care Provider] - 08/21/20 3:30 pm Diet: Heart Healthy Addtl Attending Provider Instructions: You were seen at [facility] from 08/15 to 08/16 for evaluation of chest pain. Given your cardiac history, there was concern for a cardiac-rel ated cause to this pain. During your stay, you underwent several tests that monitored your heart's electrical activity, structural function, and blood flow. These tests did not demonstrate any new areas of damage or reduced function. Further, in the context of chest pain and an elevated lab value that is sometimes concerning for clot formation, you also underwent a chest scan to rule out a blood clot in the lung - this, too, did not reveal any concerning findings. Time was also spent to rule-out your liver as a potential cause of your blood tests / pain - no clear relation was found given the tests you underwent. You were not started on any new medications during your stay here. You are to follow-up with your primary care provider within 1-2 weeks of discharge to review this visit. From before your admission here, you had an upper endoscopy (EGD) scheduled to visualize your esophagus and stomach. Recommend to keep this appointment for further work-up, as planned. If you experience any new or worsening pain, paired with shortness of breath, or feelings that you are unwell, please do not hesitate to report to the ER, call 911, or reach out to your primary care provider. Pending Studies at Discharge: No Stand-Alone Forms: My [facility], Smoking Cessation Medications and DC Order Prescriptions: Continued tamsulosin 0.4 mg Capsule 0.4 mg PO QAM RF: 0 zolpidem [Ambien] 10 mg Tablet 10 mg PO HS RF: 0 Eliquis 5 mg Tablet 5 mg PO BID Qty: 60 RF: 0 cholecalciferol (vitamin D3) [Vitamin D3] 5,000 unit Tablet 5,000 unit PO PM RF: 0 clopidogrel 75 mg Tablet 75 mg PO QAM Qty: 30 RF: 0 sotalol 120 mg tablet 120 mg PO BID Qty: 60 RF: 0 esomeprazole magnesium [Nexium] 40 mg Capsule,Delayed Release(Dr/Ec) 40 mg PO QAM RF: 0 lisinopril 20 mg tablet 20 mg PO QAM RF: 0 terazosin 2 mg Capsule 2 mg PO PM RF: 0 amlodipine [Norvasc] 5 mg tablet 5 mg PO PM RF: 0 spironolactone 25 mg tablet 12.5 mg PO QAM RF: 0 Linzess 145 mcg capsule 145 mcg PO DAILY RF: 0 Discharge Orders: Discharge Order (Routine); Ordered 08/16/20 Ordered By: Jose Marcos Admission Data Admit Date/Time: 08/15/20 12:59 Attending Provider: Bibi Onofre Admit Provider: Charleen Alvarenga Primary Care Provider: Mega Tyler Other Providers: Mitchel Rivera ; Charleen Alvarenga Other Interventions: Discharge Summary Assessment (RN) Last Done: 08/16/20 15:09 Supervising Physician Co-Signing Physician Notes Resident Physician Supervision Note: I independently interviewed and examined the patient and verified the ellison history and physical, reviewed labs and image studies, discussed the case with the resident Dr. Peck and agree with the findings and care plan. Resident Activity Tracking Resident Involvement: Resident Care Provided Care Provided: Adult Hospital Medicine
--- NOTE | 2020-08-18 11:59 | Electrocardiogram Report ---
Test Reason : Blood Pressure : / mmHG Vent. Rate : 063 BPM Atrial Rate : 063 BPM P-R Int : 160 ms QRS Dur : 092 ms QT Int : 432 ms P-R-T Axes : 002 -19 006 degrees QTc Int : 442 ms Normal sinus rhythm Minimal voltage criteria for LVH, may be normal variant ( R in aVL ) Septal infarct (cited on or before 15-AUG-2020) Abnormal ECG When compared with ECG of 15-AUG-2020 11:22, (unconfirmed) No significant change was found Confirmed by Obdulio Rodríguez ([id number]) on 08/18/2020 11:59:30 AM Referred By: REFERRED SELF Confirmed By:Obdulio Rodríguez
== END 2020-08-16 15:41 | disposition home or self-care (01) ==
LOC: 2S 11:11 → ED 11:11 → SUATTDRO 12:59 → 2S 13:30